=== PATIENT | female | born 1955 | race Caucasian/White ===

== ENCOUNTER 2019-01-09 17:50 | Inpatient (IN) ==
--- NOTE | 2019-01-09 17:54 | Emergency Department Note ---
Disposition Clinical Impression: Positive blood culture, Intermittent fever Colon cancer Qualifiers: Colon location: unspecified part of colon Qualified Code(s): C18.9 - Malignant neoplasm of colon, unspecified Disposition: Admitted As Inpatient Condition: Fair Weakness HPI - General Chief complaint: ED General Medical Stated complaint: Positive Blood Cultures Time Seen by Provider: 01/09/19 17:54 Source: patient, family Mode of arrival: private vehicle Limitations: no limitations Nursing Notes Reviewed: Yes Vital Signs Reviewed: Yes - History of Present Illness HPI Narrative: Patient presents with a history of colon cancer with distal obstruction. She had persistent vomiting for which she has had a PEG tube for continuous gastric aspiration. She is on TPN for all nutrition. States she still rarely passes small amount of stool and she has not had blood or mucus. She feels her urine to be normal. She denies cough or chest pain. She has a normal amount of dyspnea on exertion and states she feels weak. She has been having intermittent fevers to 101-102 degrees that of been coming and going for couple weeks. She has reports some nausea and vomited once yesterday evening. She denies any ill exposures. She has had a couple sets of blood cultures obtained with lab work and blood cultures yesterday. She states these were drawn from her porch by [employer] and sent to [facility]. She was called by Sarah Thompson that she had a positive blood culture, was potentially septic and would have to come to the emergency department. Pt Subjective Complaint: generalized weakness/fatigue Onset (ago): week(s) Duration: intermittent, gradually worsening Location: generalized Improves with: none Worsens with: exertion Context: recent illness Associated symptoms: Reports: fever/chills, nausea/vomiting, shortness of breath. Denies: chest pain, confusion, dark stools, diaphoresis, dysuria, easy bruising, headaches, myalgias, rash, syncope - Related Data Home Medications Medication Instructions Recorded Confirmed LORazepam [Ativan] 0.5 mg PO HS PRN 09/22/18 01/09/19 Oxycodone HCl [Oxaydo] 5 mg PO Q6H PRN 01/09/19 01/09/19 Promethazine [Phenergan] 25 mg PO Q6HR 01/09/19 01/09/19 Allergies Allergy/AdvReac Type Severity Reaction Status Date / Time Sulfa (Sulfonamide Allergy Fever Verified 01/09/19 18:28 Antibiotics) All systems ED: reviewed and negative except as stated. Past Medical History - Past Medical History Attestation: Yes The following information was validated with the patient. Source: patient, old records reviewed, obtained from family, nursing notes reviewed Medical history: Reports: cancer (colon), hypertension Surgical history: Reports: appendectomy, cancer surgery, colostomy, hysterectomy, other (PEG tube) Psychiatric history: Reports: no psych history PREDATORY HUNTER history: Reports: no PREDATORY HUNTER history - Social History Smoking Status: Never smoker Smokeless Tobacco Status: No Alcohol use: Reports: none Drug use: Reports: none Physical Exam - General Limitations: no limitations General appearance: alert, in no apparent distress, other (Patient appears somewhat pale and sallow) - Head Head exam: atraumatic, normocephalic, normal inspection - Eye Eye exam: Present: normal appearance, PERRL, EOMI. Absent: scleral icterus, conjunctival injection - ENT ENT exam: normal exam, normal oropharynx, mucous membranes moist - Neck Neck exam: Present: normal inspection, full ROM, trachea midline - Chest Chest inspection: Present: normal inspection, symmetric chest wall rise - Respiratory Respiratory exam: Present: normal lung sounds bilaterally. Absent: respiratory distress, wheezes, prolonged expiratory phase - Cardiovascular Cardiovascular exam: Present: regular rate, normal rhythm, tachycardia, normal heart sounds - Abdominal Exam Abdominal exam: Present: soft, Non-Tender. Absent: tenderness, distention, guarding, rebound, rigidity - Extremities Exam Extremities exam: Present: normal inspection, full ROM, normal capillary refill. Absent: tenderness, pedal edema - Expanded Lower Extremity Exam Neurovascular/Tendon exam: Present: normal capillary refill. Absent: motor deficit, sensory deficit, tendon deficit Gait: observed and normal - Back Exam Back exam: Present: normal inspection, full ROM. Absent: tenderness - Neurological Exam Neurological exam: Present: alert, oriented X3 - Psychiatric Psychiatric exam: Present: normal affect, normal mood - Skin Skin exam: Present: warm, dry, intact, pallor. Absent: rash, diaphoresis Course Course Narrative: 1821: I have contacted Dr. Riggs to clarify the record from the office. He states they have been in communication with the specialist from [facility] and they recommended oral doxycycline just in case the staph epidermidis was not a contaminant. This was called to [facility] pharmacy yesterday. Today her had called to say she had nausea with a doxycycline and questioned his medications could be given intravenously by her report. Given her elevated white count and intolerance of the oral medication and was recommended that she come to the emergency department because they "cannot manage as outpatient". In the record his been thought that her intermittent fevers and then more se condary to her cancer that infection. With the positive culture they have recommended a course of IV antibiotics to see if that helps. 1841: Care has been discussed with Dr. Quiros. He is agreeable to continue IV fluids and IV antibiotics over the night. He did wish to have the repeat cultures performed. He will be in contact with the primary care provider to coordinate ongoing care during daylight hours tomorrow. Vital Signs Temperature 98.7 F 01/09/19 17:50 Pulse Rate 111 01/09/19 17:50 Respiratory Rate 16 01/09/19 17:50 Blood Pressure 135/72 01/09/19 17:50 O2 Sat by Pulse Oximetry 100 01/09/19 17:50 Temperature 101.3 F H 01/10/19 06:46 Pulse Rate 129 01/10/19 06:46 Respiratory Rate 20 01/10/19 06:46 Blood Pressure 125/71 01/10/19 06:46 O2 Sat by Pulse Oximetry 95 01/10/19 06:46 Oxygen Delivery Oxygen Delivery Room Air Weakness - Differential Diagnosis Differential Diagnosis: Likely: anemia, sepsis/infection, dehydration, medicat ion effect, metabolic - Medical Records Medical records reviewed: Yes I reviewed the patient's medical records. Patient had a blood culture from January 02 that was positive for Staphylococcus epidermidis. This demonstrates sensitivity to doxycycline as well as vancomycin. Her blood cultures from yesterday are currently incubating and have not been positive. I called the lab to confirm this. CBC yesterday had white count of 22.1 and her hemoglobin is at 7.6 with platelets of 650. Chemistries were remarkable for be 132 with creatinine 0.83. LFTs had only slight elevation of alkaline phosphatase of 164. On January 04 she had similar lab work with white count of 21.3 and hemoglobin of 8. Her be on was 25 and a creatinine of 0.90 at that time. - Lab Data Lab results reviewed: Yes I reviewed the patient's lab results. Result diagrams: 01/09/19 18:13 01/09/19 18:13 Lab Results 01/09/19 01/09/19 01/09/19 Range/Units 18:13 18:13 18:13 WBC 22.4 H (4.3-11.1) K/mcL RBC 2.78 L (3.82-4.97) M/mcL Hgb 7.5 L (11.5-15.4) g/dL Hct 23.3 L (35.3-44.9) % MCV 83.8 (83.0-100.0) fL MCH 27.0 L (28.0-33.3) pg MCHC 32.2 (31.6-35.5) g/dL RDW 17.6 H (11.5-14.5) % Plt Count 680 H (140-400) K/mcL MPV 8.5 L (9.4-12.4) fL Immature Gran % 2.6 (0-4) % Seg Neutrophils % 75.7 % Lymphocytes % 11.7 % Monocytes % 8.8 % Eosinophils % 0.9 % Basophils % 0.3 % Neutrophils # 17.0 H (1.6-8.9) K/mcL Lymphocytes # 2.6 (0.6-4.6) K/mcL Monocytes # 2.0 H (0.0-1.3) K/mcL Eosinophils # 0.2 (0.0-0.6) K/mcL Basophils # 0.1 (0.0-0.2) K/mcL Sodium 136 (136-145) mEq/L Potassium 3.8 (3.5-5.1) mEq/L Chloride 101 (98-107) mEq/L Carbon Dioxide 25 (23-29) mEq/L BUN 31 H (8-23) mg/dL Creatinine 0.91 (0.60-1.20) mg/dL Est GFR ( Amer) > 60 (> 60) Est GFR (Non-Af Amer) > 60 (> 60) BUN/Creatinine Ratio 34 H (6-26) Glucose 102 (70-105) mg/dL Calculated Osmolality 289 (280-300) Lactic Acid 0.9 (0.5-2.2) mmol/L Calcium 8.6 (8.6-10.3) mg/dL Total Bilirubin 0.3 (0.3-1.0) mg/dL Direct Bilirubin 0.1 (0.0-0.2) mg/dL Indirect Bilirubin 0.2 (0.0-1.2) mg/dL AST 21 (13-39) Units/L ALT 25 (7-52) Units/L Alkaline Phosphatase 189 H (34-104) Units/L Serum Total Protein 7.1 (6.4-8.9) g/dL Albumin 2.9 L (3.5-5.7) g/dL Globulin 4.2 H (2.4-3.5) g/dL Albumin/Globulin Ratio 0.7 L (1.1-2.2)
[2019-01-09] MEDS ORDERED: Piperacillin/Tazobactam 3.375 GM in 0.9 % Sodium Chloride Mini Bag 100 ML IVPB ONE (17:56)
[2019-01-09] MEDS ORDERED: 0.9 % Sodium Chloride 1,000 ML IVC ONE (17:56)
[2019-01-09] MEDS ORDERED: 0.9 % Sodium Chloride 1,000 ML IVC SCH (18:00)
[2019-01-09 18:21] LABS: Basophils # 0.1 K/mcL (0.0-0.2); Basophils % 0.3 %; Eosinophils # 0.2 K/mcL (0.0-0.6); Eosinophils % 0.9 %; Hematocrit 23.3 % (35.3-44.9); Hemoglobin 7.5 g/dL (11.5-15.4); Immature Granulocytes % 2.6 % (0-4); Lymphocytes # 2.6 K/mcL (0.6-4.6); Lymphocytes % 11.7 %; Mean Corpuscular HGB Conc 32.2 g/dL (31.6-35.5); Mean Corpuscular Volume 83.8 fL (83.0-100.0); Mean Platelet Volume 8.5 fL (9.4-12.4); Monocytes % 8.8 %; Platelet Count 680 K/mcL (140-400); Red Blood Count 2.78 M/mcL (3.82-4.97); Red Cell Distribution Width 17.6 % (11.5-14.5); Segmented Neutrophils % 75.7 %
[2019-01-09 18:36] LABS: Alanine Aminotransferase 25 Units/L (7-52); Albumin 2.9 g/dL (3.5-5.7); Albumin/Globulin Ratio 0.7 (1.1-2.2); Alkaline Phosphatase 189 Units/L (34-104); Aspartate Amino Transferase 21 Units/L (13-39); BUN/Creatinine Ratio 34 (6-26); Bilirubin,Direct 0.1 mg/dL (0.0-0.2); Bilirubin,Indirect 0.2 mg/dL (0.0-1.2); Bilirubin,Total 0.3 mg/dL (0.3-1.0); Blood Urea Nitrogen 31 mg/dL (8-23); Calcium 8.6 mg/dL (8.6-10.3); Carbon Dioxide 25 mEq/L (23-29); Chloride 101 mEq/L (98-107); Globulin 4.2 g/dL (2.4-3.5); Glucose 102 mg/dL (70-105); Osmolality,Calculated 289 (280-300); Potassium 3.8 mEq/L (3.5-5.1); Sodium 136 mEq/L (136-145); Total Protein 7.1 g/dL (6.4-8.9); eGFR For Non-African Americans > 60 (> 60)
[2019-01-09] MEDS ORDERED: Ondansetron ODT 4 MG TAB.RAPDIS SL PRN (19:53)
[2019-01-09] MEDS ORDERED: *HR* LORazepam 1 MG TABLET PO PRN (19:53)
[2019-01-09] MEDS ORDERED: Naloxone 0.4 MG/ML INJ IVP PRN (19:53)
[2019-01-09] MEDS: *HR* OxyCODONE Immed Rel 5 MG TABLET PO PRN (21:54)
[2019-01-09] MEDS: *HR* LORazepam 2 MG/ML VIAL IVP PRN (21:55)
[2019-01-09] MEDS: *HR* Promethazine 25 MG/ML VIAL IVP SCH (21:55)
[2019-01-10] MEDS ORDERED: *HR* Promethazine 25 MG/ML VIAL IVP SCH
[2019-01-10] MEDS ORDERED: cefTRIAXone 2,000 MG in 0.9 % Sodium Chloride Mini Bag 100 ML IVPB ONE (00:33)
[2019-01-10] MEDS: Acetaminophen 325 MG TABLET PO PRN ×2 (00:53→23:04)
[2019-01-10] MEDS: Piperacillin/Tazobactam 3.375 GM in 0.9 % Sodium Chloride Mini Bag 100 ML IVPB SCH ×3 (03:05→23:01)
[2019-01-10] MEDS: 0.9 % Sodium Chloride 1,000 ML IVC SCH ×3 (04:47→15:58)
[2019-01-10] MEDS: *HR* Promethazine 25 MG/ML VIAL IVP SCH ×4 (04:47→22:00)
[2019-01-10] MEDS: *HR* OxyCODONE Immed Rel 5 MG TABLET PO PRN (10:34)
[2019-01-10] MEDS ORDERED: MORPHINE SUL Oral CONC 10 MG/0.5 ML ORAL.SYG SL PRN (10:57)
--- NOTE | 2019-01-10 15:04 | Internal Med History&Physical ---
Date of Encounter: 01/10/19 Time of Encounter: 12:30 Assessment and Plan (1) Anemia Current visit: Yes Status: Acute Anemia testing will be done Qualifiers: Anemia type: unspecified type Qualified Code(s): D64.9 - Anemia, unspecified (2) Azotemia Current visit: Yes Status: Acute IV fluids will be given and labs monitored. (3) Elevated WBC count Current visit: No Status: Acute Repeat blood cultures have been drawn. Continue Zosyn and vancomycin empiric ally. Qualifiers: Leukocytosis type: unspecified Qualified Code(s): D72.829 - Elevated white blood cell count, unspecified (4) Colon cancer Current visit: Yes Status: Acute As per oncologist. Qualifiers: Colon location: unspecified part of colon Qualified Code(s): C18.9 - Malignant neoplasm of colon, unspecified (5) Staphylococcus epidermidis bacteremia Current visit: Yes Status: Acute MRSE. Continue IV vancomycin. Add lactobacillus. Internal Medicine - H&P: HPI Chief complaint: Bacteremia Admitted From: Emergency Dept Plans for Post Hospital Care: Home History of present illness: Ms. Headley is a 63 year old female he was directed by her PCP office to come to emergency room for admission to receive IV antibiotics for treatment of methicillin resistant staph epidermidis found on blood cultures drawn 01/02/2019. The cultures were drawn through her port used for administration of TPN. She was evaluated in emergency room and was found to have persistent leukocytosis which has been present since 01/01/2019. She had worsened anemia with hemoglobin 7.5. There was slight azotemia present with BUN and creatinine 31 and 0.91 respectively. She was given IV Rocephin, Zosyn, and vancomycin and was admitted to [facility] floor with ongoing Zosyn and vancomycin. She reports she had been prescribed oral clindamycin by her PCP office immediately after culture results returned but was unable to tolerate. She was then changed to oral doxycycline but could not tolerate it either. She states she has has been having fevers and chills for several months but lab tests since November 2016 have shown no leukocytosis until the labs drawn 01/01/2019. The fevers and chills have been attributed to metastatic colon cancer which was diagnosed in 2009. She had a colostomy placed April 2014 following hemicolectomy. She was hospitalized 12/21/2018 to 12/30/2018 at [facility] for distal bowel obstruction. A PEG tube was placed for drainage to avoid vomiting from obstruction. She was started on TPN for nutritional needs. She has received multiple chemotherapy regimens and has had multiple metastatic lesions treated with various modalities. There is no other malignancy history. She has anemia and has received numerous blood transfusions. Past Med Surg Social Fam HX - Past Medical History Medical history: cancer (colon), hypertension Additional medical history: colon CA Psychiatric history: no psych history - Past Surgical History Surgical History: appendectomy, cancer surgery, colostomy, hysterectomy, other (PEG tube) Additional surgical history: x7 abd surgeries, colon surgery - Social History Smoking Status: Never smoker Smokeless Tobacco Status: No Alcohol use: none Drug use: none - Family History Mother Hx Family Cancer: Yes (Colon) Internal Medicine - H&P: Meds LORazepam [Ativan] 0.5 mg PO HS PRN 09/22/18 [History] Oxycodone HCl [Oxaydo] 5 mg PO Q6H PRN 01/09/19 [History] Promethazine [Phenergan] 25 mg PO Q6HR 01/09/19 [History] Allergy/AdvReac Type Severity Reaction Status Date / Time Sulfa (Sulfonamide Allergy Fever Verified 01/09/19 18:28 Antibiotics) All Systems PM: A 10-system review of systems was performed and is negative for pertinent findings except as documented above in the HPI. Review of systems: Gen.: Her weight has decreased from 73.935 kg December 2014 to weight of 65.771 kg on admission now Cardiovascular: She denies AR hypertension heart failure angina DVT or pulmonary embolus Respiratory: She is a lifelong nonsmoker and has no known chronic lung disease GI: She has colon cancer as per history of present illness. She denies disorders of her liver gallbladder or exocrine pancreas : She had partial cystectomy as part of treatment for colon cancer. She denies other kidney or bladder disorders. She has had hysterectomy and oophorectomy. Neurologic: She denies large distribution strokes or seizures. Endocrine: She denies diabetes thyroid disease or hyperlipidemia Hematology/oncology: As per history of present illness Psychiatric: She has anxiety but no significant depression or other mental health issues [place] skeletal: She denies arthritis gout or other bone joint or muscle disorders. - Constitutional Vitals: Temp Pulse Resp BP Pulse Ox 98.5 F 110 14 110/66 96 01/10/19 10:00 01/10/19 10:00 01/10/19 10:00 01/10/19 10:00 01/10/19 10:00 Exam: Gen.: She is well-developed lean female resting comfortably in bed who appears in no acute distress HEENT: Head is atraumatic and normocephalic. Eyes: EOMI. There is no scleral icterus. Mouth: Mucosa is moist. Neck: Supple and nontender. There is no thyromegaly or adenopathy noted. Heart: Regular with rate approximately 100/m. Lungs: No wheezes or crackles are heard. Abdomen: A G-tube is in place draining green bilious material into a collection bag. Colostomy is in the lower abdominal area just left of midline. There is a well-healed midline surgical scar. No masses or guarding are noted. Extremities: There is no cyanosis edema or clubbing noted. Dorsalis pedis and posterior tibial pulses are trace to 1+ palpable bilaterally. Neurologic: Mental status: She is talkative and a good historian. Cranial nerves: Smile is symmetric. Forehead wrinkles bilaterally. Tongue protrudes midline. EOMI. Motor: There is no pronator drift. Cerebellar: Finger to nose is intact bilaterally. Skin: Warm and dry Internal Med - H&P Results - Labs CBC & Chem 7: 01/09/19 18:13 01/09/19 18:13 Labs: Short CBC 01/09/19 Range/Units 18:13 WBC 22.4 H (4.3-11.1) K/mcL Hgb 7.5 L (11.5-15.4) g/dL Hct 23.3 L (35.3-44.9) % Plt Count 680 H (140-400) K/mcL Neutrophils # 17.0 H (1.6-8.9) K/mcL BMP 01/09/19 18:13 Sodium 136 Potassium 3.8 Chloride 101 Carbon Dioxide 25 BUN 31 H Creatinine 0.91 Glucose 102 Calcium 8.6 Liver Function 01/09/19 Range/Units 18:13 Total Bilirubin 0.3 (0.3-1.0) mg/dL Direct Bilirubin 0.1 (0.0-0.2) mg/dL AST 21 (13-39) Units/L ALT 25 (7-52) Units/L Alkaline Phosphatase 189 H (34-104) Units/L Albumin 2.9 L (3.5-5.7) g/dL
[2019-01-10] MEDS: MORPHINE SUL Oral CONC 10 MG/0.5 ML ORAL.SYG SL PRN (15:54)
[2019-01-10] MEDS: 0.45 % Sodium Chloride w/KCl 20 MEQ/1,000 ML MLS IVC SCH (15:56)
[2019-01-10] MEDS ORDERED: 0.9 % Sodium Chloride 1,000 ML ONE (18:48)
[2019-01-10] MEDS: Lactobacillus 1 EACH CAP.SPRINK PO SCH (19:11)
[2019-01-10 21:54] LABS: Folate 17.5 ng/mL (3.0-16.0)
[2019-01-10 21:55] LABS: Ferritin 321 ng/mL (10-120); Iron < 10 mcg/dL (50-170); Transferrin 137 mg/dL (203-362)
[2019-01-10] MEDS: *HR* LORazepam 2 MG/ML VIAL IVP PRN (22:00)
[2019-01-11] MEDS ORDERED: 0.9 % Sodium Chloride 250 ML ONE (01:18)
[2019-01-11] MEDS: *HR* Promethazine 25 MG/ML VIAL IVP SCH ×4 (05:04→22:09)
[2019-01-11] MEDS: Acetaminophen 325 MG TABLET PO PRN ×2 (05:18→15:22)
[2019-01-11 06:04] LABS: Basophils # 0.1 K/mcL (0.0-0.2); Basophils % 0.3 %; Eosinophils # 0.3 K/mcL (0.0-0.6); Eosinophils % 1.4 %; Hematocrit 28.1 % (35.3-44.9); Hemoglobin 9.1 g/dL (11.5-15.4); Immature Granulocytes % 1.7 % (0-4); Lymphocytes # 2.2 K/mcL (0.6-4.6); Lymphocytes % 10.2 %; Mean Corpuscular HGB Conc 32.4 g/dL (31.6-35.5); Mean Corpuscular Hemoglobin 27.4 pg (28.0-33.3); Mean Corpuscular Volume 84.6 fL (83.0-100.0); Mean Platelet Volume 8.5 fL (9.4-12.4); Monocytes % 9.4 %; Neutrophils # 16.5 K/mcL (1.6-8.9); Platelet Count 628 K/mcL (140-400); Red Blood Count 3.32 M/mcL (3.82-4.97); Red Cell Distribution Width 17.2 % (11.5-14.5)
[2019-01-11 06:27] LABS: BUN/Creatinine Ratio 26 (6-26); Blood Urea Nitrogen 22 mg/dL (8-23); Carbon Dioxide 23 mEq/L (23-29); Chloride 105 mEq/L (98-107); Glucose 79 mg/dL (70-105); Osmolality,Calculated 288 (280-300); Potassium 3.7 mEq/L (3.5-5.1); Sodium 138 mEq/L (136-145); eGFR For Non-African Americans > 60 (> 60)
[2019-01-11] MEDS: Piperacillin/Tazobactam 3.375 GM in 0.9 % Sodium Chloride Mini Bag 100 ML IVPB SCH (07:58)
[2019-01-11] MEDS: Lactobacillus 1 EACH CAP.SPRINK PO SCH ×2 (08:18→20:01)
--- NOTE | 2019-01-11 10:46 | Internal Med Progress Note ---
Date of Encounter: 01/11/19 Time of Encounter: 10:24 - Assessment and plan (1) Anemia Current Visit: Yes Status: Acute Assessment and plan: January 11. Hemoglobin has risen to 9.1 after 2 units packed red blood cells transfused. Anemia testing showed iron < 10, transferrin 137, ferritin 321, B12 391, and folate 17.5. She will receive an iron sucrose injection. Qualifiers: Anemia type: unspecified type Qualified Code(s): D64.9 - Anemia, unspecified (2) Azotemia Current Visit: Yes Status: Acute Assessment and plan: January 11. BUN and creatinine normalized at 22 and 0.86 respectively. Continue IV fluids. (3) Elevated WBC count Current Visit: No Status: Acute Assessment and plan: January 11. WBC minimally changed at 21.4. Borderline left shift on differential is present. Continue IV vancomycin. Discontinue Zosyn. Qualifiers: Leukocytosis type: unspecified Qualified Code(s): D72.829 - Elevated white blood cell count, unspecified (4) Colon cancer Current Visit: Yes Status: Acute Assessment and plan: January 11. As per oncologist Qualifiers: Colon location: unspecified part of colon Qualified Code(s): C18.9 - Malignant neoplasm of colon, unspecified (5) Staphylococcus epidermidis bacteremia Current Visit: Yes Status: Acute Assessment and plan: January 11. HUMAIRA. Continue IV vancomycin and lactobacillus. - Subjective Interval history: January 11. She has no new complaints and feels better. - Constitutional Vitals: Temp Pulse Resp BP Pulse Ox 99.7 F H 109 16 117/66 97 01/11/19 09:53 01/11/19 09:53 01/11/19 09:53 01/11/19 09:53 01/11/19 09:53 Exam: She is resting comfortably in bed and appears in no acute distress. Her affect is overall cheerful. I reviewed her medications and lab results. Internal Medicine: Result - Labs CBC & Chem 7: 01/11/19 04:40 01/11/19 04:40 Labs: Short CBC 01/11/19 Range/Units 04:40 WBC 21.4 H (4.3-11.1) K/mcL Hgb 9.1 L D (11.5-15.4) g/dL Hct 28.1 L (35.3-44.9) % Plt Count 628 H (140-400) K/mcL Neutrophils # 16.5 H (1.6-8.9) K/mcL BMP 01/11/19 04:40 Sodium 138 Potassium 3.7 Chloride 105 Carbon Dioxide 23 BUN 22 Creatinine 0.86 Glucose 79 Calcium 8.0 L Consult Discharge Plan - Plan Referrals: Sarah Thompson, MANAGER CODE [Primary Care Provider] - 1 week
[2019-01-11] MEDS ORDERED: Iron Sucrose Complex 400 MG in 0.9 % Sodium Chloride 250 ML IVPB ONE (10:51)
[2019-01-11] MEDS: MORPHINE SUL Oral CONC 10 MG/0.5 ML ORAL.SYG SL PRN ×2 (10:56→15:23)
[2019-01-11] MEDS: 0.45 % Sodium Chloride w/KCl 20 MEQ/1,000 ML MLS IVC SCH ×2 (13:44→15:02)
[2019-01-11] MEDS: *HR* LORazepam 2 MG/ML VIAL IVP PRN (20:01)
[2019-01-12] MEDS: Acetaminophen 325 MG TABLET PO PRN ×3 (02:19→16:46)
[2019-01-12] MEDS: *HR* Promethazine 25 MG/ML VIAL IVP SCH ×4 (04:25→21:17)
[2019-01-12 04:55] LABS: Basophils # 0.1 K/mcL (0.0-0.2); Basophils % 0.3 %; Eosinophils # 0.3 K/mcL (0.0-0.6); Eosinophils % 1.5 %; Hematocrit 27.3 % (35.3-44.9); Hemoglobin 8.9 g/dL (11.5-15.4); Immature Granulocytes % 1.8 % (0-4); Lymphocytes # 2.2 K/mcL (0.6-4.6); Lymphocytes % 10.8 %; Mean Corpuscular HGB Conc 32.6 g/dL (31.6-35.5); Mean Corpuscular Hemoglobin 27.6 pg (28.0-33.3); Mean Corpuscular Volume 84.8 fL (83.0-100.0); Mean Platelet Volume 8.5 fL (9.4-12.4); Monocytes # 1.9 K/mcL (0.0-1.3); Monocytes % 9.4 %; Neutrophils # 15.2 K/mcL (1.6-8.9); Platelet Count 596 K/mcL (140-400); Red Blood Count 3.22 M/mcL (3.82-4.97); Red Cell Distribution Width 17.2 % (11.5-14.5); Segmented Neutrophils % 76.2 %
[2019-01-12 05:19] LABS: BUN/Creatinine Ratio 32 (6-26); Blood Urea Nitrogen 25 mg/dL (8-23); Carbon Dioxide 22 mEq/L (23-29); Chloride 105 mEq/L (98-107); Glucose 81 mg/dL (70-105); Osmolality,Calculated 287 (280-300); Potassium 3.9 mEq/L (3.5-5.1); Sodium 137 mEq/L (136-145); eGFR For Non-African Americans > 60 (> 60)
[2019-01-12 07:11] LABS: Bilirubin,Urine Negative (Negative); Blood,Urine Trace-intact (Negative); Clarity,Urine Clear (Clear); Color,Urine Yellow (Yellow); Glucose,Urine (UA) Normal (Normal); Ketones,Urine Negative (Negative); Leukocyte Esterase,Urine Negative (Negative); Nitrite,Urine Negative (Negative); PH,Urine 6.5 pH Units (5.0-8.0); Protein,Urine Trace mg/dL (Neg-Trace); Urobilinogen,Urine Normal (Normal)
[2019-01-12] MEDS: 0.45 % Sodium Chloride w/KCl 20 MEQ/1,000 ML MLS IVC SCH ×2 (07:58→11:28)
[2019-01-12] MEDS: Lactobacillus 1 EACH CAP.SPRINK PO SCH ×2 (08:05→19:56)
[2019-01-12 10:35] LABS: RBC,Urine 0-3 per hpf (0-3); Renal Epithelial Cells,Urine Few per hpf (None-Few); Squamous Epithelial Cell,Urine None Seen per lpf (None-Few); WBC,Urine 0-3 per hpf (0-3)
--- NOTE | 2019-01-12 10:51 | Internal Med Progress Note ---
Date of Encounter: 01/12/19 Time of Encounter: 10:40 - Assessment and plan (1) Anemia Current Visit: Yes Status: Acute Assessment and plan: January 11. Hemoglobin has risen to 9.1 after 2 units packed red blood cells transfused. Anemia testing showed iron < 10, transferrin 137, ferritin 321, B12 391, and folate 17.5. She will receive an iron sucrose injection. January 12. Hemoglobin minimally changed at 8.9. Continue to monitor CBC periodically. Qualifiers: Anemia type: unspecified type Qualified Code(s): D64.9 - Anemia, unspecified (2) Azotemia Current Visit: Yes Status: Acute Assessment and plan: January 11. BUN and creatinine normalized at 22 and 0.86 respectively. Continue IV fluids. January 12. BUN and creatinine further improved to 25 and 0.78 respectively. Continue IV fluids but change to 12 hour span between TPN administrations. (3) Elevated WBC count Current Visit: No Status: Acute Assessment and plan: January 11. WBC minimally changed at 21.4. Borderline left shift on differential is present. Continue IV vancomycin. Discontinue Zosyn. January 12. WBC gradually decreasing. There is still borderline left shift seen. I explained to patient and her I was concerned there might be a source focus for the staph epidermidis such as valve vegetation since she has IV port in place. Her WBC is gradually decreasing but is still significantly elevated and she has significantly elevated ESR and CRP. I offered referral to another center for infectious disease and cardiology evaluation including possible [facility]. After discussion patient and stated they wish to stay at [facility] and continue empiric IV antibiotic treatment. She will need to be on IV vancomycin for at least 2 weeks with lab monitoring done. Blood cultures done January 08 and January 09 are pending. Qualifiers: Leukocytosis type: unspecified Qualified Code(s): D72.829 - Elevated white blood cell count, unspecified (4) Colon cancer Current Visit: Yes Status: Acute Assessment and plan: January 11. As per oncologist Qualifiers: Colon location: unspecified part of colon Qualified Code(s): C18.9 - Malignant neoplasm of colon, unspecified (5) Staphylococcus epidermidis bacteremia Current Visit: Yes Status: Acute Assessment and plan: January 11. MRSE. Continue IV vancomycin and lactobacillus. January 12. As above - Subjective Interval history: January 11. She has no new complaints and feels better. January 12. She has no new complaints. - Constitutional Vitals: Temp Pulse Resp BP Pulse Ox 99.1 F 107 18 121/68 97 01/12/19 07:55 01/12/19 07:55 01/12/19 07:55 01/12/19 07:55 01/12/19 07:55 Exam: She is resting comfortably in bed and appears in no acute distress. Her affect is bright and cheerful. I reviewed her medications, vitals, and lab results. Internal Medicine: Result - Labs CBC & Chem 7: 01/12/19 04:35 01/12/19 04:35 Labs: Short CBC 01/12/19 Range/Units 04:35 WBC 19.9 H (4.3-11.1) K/mcL Hgb 8.9 L (11.5-15.4) g/dL Hct 27.3 L (35.3-44.9) % Plt Count 596 H (140-400) K/mcL Neutrophils # 15.2 H (1.6-8.9) K/mcL BMP 01/12/19 04:35 Sodium 137 Potassium 3.9 Chloride 105 Carbon Dioxide 22 L BUN 25 H Creatinine 0.78 Glucose 81 Calcium 8.0 L Urine 01/11/19 Range/Units 05:13 Urine Color Yellow (Yellow) Urine Clarity Clear (Clear) Urine pH 6.5 (5.0-8.0) pH Units Ur Specific [place] 1.020 (1.010-1.025) Urine Protein Trace (Neg-Trace) mg/dL Urine Glucose (UA) Normal (Normal) mg/dL Consult Discharge Plan - Plan Referrals: Sarah Thompson, CDL TEAM TRUCK DRIVER [Primary Care Provider] - 1 week
[2019-01-12] MEDS: MORPHINE SUL Oral CONC 10 MG/0.5 ML ORAL.SYG SL PRN (13:29)
[2019-01-12 13:41] LABS: Magnesium 1.9 mg/dL (1.6-2.6); Phosphorous 3.4 mg/dL (2.7-4.5)
[2019-01-12] MEDS: *HR* FentaNYL PATCH 12 MCG PATCH TD SCH (16:49)
[2019-01-12] MEDS ORDERED: Patient Taking Own Medication 1 EACH IVP ONE (19:45)
[2019-01-12] MEDS: *HR* LORazepam 2 MG/ML VIAL IVP PRN (21:17)
[2019-01-13] MEDS: Acetaminophen 325 MG TABLET PO PRN ×3 (01:37→18:02)
[2019-01-13] MEDS: *HR* Promethazine 25 MG/ML VIAL IVP SCH ×4 (03:41→21:09)
[2019-01-13] MEDS: *HR* Enoxaparin 40 MG/0.4 ML SYRINGE SQ SCH (05:25)
[2019-01-13 06:47] LABS: Magnesium 1.9 mg/dL (1.6-2.6); Phosphorous 4.2 mg/dL (2.7-4.5)
[2019-01-13] MEDS: 0.45 % Sodium Chloride w/KCl 20 MEQ/1,000 ML MLS IVC SCH (08:40)
[2019-01-13] MEDS: Lactobacillus 1 EACH CAP.SPRINK PO SCH ×2 (08:41→21:08)
[2019-01-13] MEDS ORDERED: D10% in Water 500 ML IVC PRN (10:26)
--- NOTE | 2019-01-13 15:43 | Internal Med Progress Note ---
Date of Encounter: 01/13/19 Time of Encounter: 15:30 - Assessment and plan (1) Anemia Current Visit: Yes Status: Acute Assessment and plan: January 11. Hemoglobin has risen to 9.1 after 2 units packed red blood cells transfused. Anemia testing showed iron < 10, transferrin 137, ferritin 321, B12 391, and folate 17.5. She will receive an iron sucrose injection. January 12. Hemoglobin minimally changed at 8.9. Continue to monitor CBC periodically. January 13. Recheck labs in a.m. Qualifiers: Anemia type: unspecified type Qualified Code(s): D64.9 - Anemia, u nspecified (2) Azotemia Current Visit: Yes Status: Acute Assessment and plan: January 11. BUN and creatinine normalized at 22 and 0.86 respectively. Continue IV fluids. January 12. BUN and creatinine further improved to 25 and 0.78 respectively. Continue IV fluids but change to 12 hour span between TPN administrations. January 13. Recheck labs in a.m. (3) Elevated WBC count Current Visit: No Status: Acute Assessment and plan: January 11. WBC minimally changed at 21.4. Borderline left shift on differential is present. Continue IV vancomycin. Discontinue Zosyn. January 12. WBC gradually decreasing. There is still borderline left shift seen. I explained to patient and her I was concerned there might be a source focus for the staph epidermidis such as valve vegetation since she has IV port in place. Her WBC is gradually decreasing but is still significantly elevated and she has significantly elevated ESR and CRP. I offered referral to another center for infectious disease and cardiology evaluation including possible BIANKA. After discussion patient and stated they wish to stay at [facility] and continue empiric IV antibiotic treatment. She will need to be on IV vancomycin for at least 2 weeks with lab monitoring done. Blood cultures done January 08 and January 09 are pending. January 13. Recheck labs in a.m. Qualifiers: Leukocytosis type: unspecified Qualified Code(s): D72.829 - Elevated white blood cell count, unspecified (4) Colon cancer Current Visit: Yes Status: Acute Assessment and plan: January 11. As per oncologist Qualifiers: Colon location: unspecified part of colon Qualified Code(s): C18.9 - Malignant neoplasm of colon, unspecified (5) Staphylococcus epidermidis bacteremia Current Visit: Yes Status: Acute Assessment and plan: January 11. HUMAIRA. Continue IV vancomycin and lactobacillus. January 12. As above January 13. I explained again to patient and family that I was not certain that she had endocarditis since no BIANKA had been done. I told them staph epidermidis could be a contaminant or true pathogen from port infection. Blood cultures January 08 January 09 show no growth to date. They agreed is reasona ble to continue IV antibiotics at this time and continuously reassess. (6) On total parenteral nutrition (TPN) Current Visit: Yes Status: Acute Assessment and plan: January 13. After lengthy discussions with multiple parties it has been decided she will be given TPN from [facility] pharmacy 18 hours a day with IV fluids to run the remaining 6 hours. - Subjective Interval history: January 11. She has no new complaints and feels better. January 12. She has no new complaints. January 13. She has no new complaints and feels better. - Constitutional Vitals: Temp Pulse Resp BP Pulse Ox 98.8 F 101 18 113/61 96 01/13/19 11:58 01/13/19 11:58 01/13/19 11:58 01/13/19 11:58 01/13/19 11:58 Exam: She is resting comfortably in bed and appears in no acute distress. Her affect is bright and cheerful. I reviewed her medications and lab results. Internal Medicine: Result - Labs CBC & Chem 7: 01/12/19 04:35 01/12/19 04:35 Consult Discharge Plan - Plan Referrals: Sarah Thompson, [employer] [Primary Care Provider] - 1 week
[2019-01-13] MEDS ORDERED: 0.45 % Sodium Chloride w/KCl 20 MEQ/1,000 ML MLS IVC SCH (15:47)
[2019-01-13] MEDS: MORPHINE SUL Oral CONC 10 MG/0.5 ML ORAL.SYG SL PRN (16:06)
[2019-01-13] MEDS ORDERED: Clinimix E 5%-15% SOLUTION 2,000 ML with MVI, adult with vitamin K 10 ML, Trace Eleme... IVC SCH (17:00)
[2019-01-13] MEDS: *HR* LORazepam 2 MG/ML VIAL IVP PRN (21:09)
[2019-01-14] MEDS: *HR* Promethazine 25 MG/ML VIAL IVP SCH (02:55)
[2019-01-14] MEDS: Acetaminophen 325 MG TABLET PO PRN ×3 (02:55→16:36)
[2019-01-14] MEDS: *HR* Enoxaparin 40 MG/0.4 ML SYRINGE SQ SCH (06:06)
[2019-01-14 06:30] LABS: Basophils # 0.1 K/mcL (0.0-0.2); Basophils % 0.3 %; Eosinophils # 0.4 K/mcL (0.0-0.6); Eosinophils % 2.3 %; Hematocrit 26.2 % (35.3-44.9); Hemoglobin 8.4 g/dL (11.5-15.4); Immature Granulocytes % 1.7 % (0-4); Lymphocytes # 1.9 K/mcL (0.6-4.6); Lymphocytes % 10.8 %; Mean Corpuscular HGB Conc 32.1 g/dL (31.6-35.5); Mean Corpuscular Hemoglobin 27.5 pg (28.0-33.3); Mean Corpuscular Volume 85.9 fL (83.0-100.0); Mean Platelet Volume 8.4 fL (9.4-12.4); Monocytes # 1.4 K/mcL (0.0-1.3); Monocytes % 7.9 %; Neutrophils # 13.5 K/mcL (1.6-8.9); Platelet Count 559 K/mcL (140-400); Red Blood Count 3.05 M/mcL (3.82-4.97); Red Cell Distribution Width 16.9 % (11.5-14.5)
[2019-01-14 06:51] LABS: Alanine Aminotransferase 19 Units/L (7-52); Albumin 2.6 g/dL (3.5-5.7); Albumin/Globulin Ratio 0.7 (1.1-2.2); Alkaline Phosphatase 194 Units/L (34-104); Aspartate Amino Transferase 17 Units/L (13-39); BUN/Creatinine Ratio 28 (6-26); Bilirubin,Total 0.4 mg/dL (0.3-1.0); Blood Urea Nitrogen 22 mg/dL (8-23); Carbon Dioxide 24 mEq/L (23-29); Chloride 102 mEq/L (98-107); Globulin 3.7 g/dL (2.4-3.5); Glucose 160 mg/dL (70-105); Osmolality,Calculated 287 (280-300); Potassium 4.1 mEq/L (3.5-5.1); Sodium 135 mEq/L (136-145); Total Protein 6.3 g/dL (6.4-8.9); eGFR For Non-African Americans > 60 (> 60)
[2019-01-14] MEDS ORDERED: *HR* Promethazine 25 MG/ML VIAL IVP PRN (09:11)
[2019-01-14] MEDS: Lactobacillus 1 EACH CAP.SPRINK PO SCH ×2 (09:25→20:57)
--- NOTE | 2019-01-14 10:01 | Internal Med Progress Note ---
Date of Encounter: 01/14/19 Time of Encounter: 09:50 - Assessment and plan (1) Anemia Current Visit: Yes Status: Acute Assessment and plan: January 11. Hemoglobin has risen to 9.1 after 2 units packed red blood cells transfused. Anemia testing showed iron < 10, transferrin 137, ferritin 321, B12 391, and folate 17.5. She will receive an iron sucrose injection. January 12. Hemoglobin minimally changed at 8.9. Continue to monitor CBC periodically. January 13. Recheck labs in a.m. January 14. Hemoglobin decreased slightly to 8.4. Continue to monitor. Qualifiers: Anemia type: unspecified type Qualified Code(s): D64.9 - Anemia, unspecified (2) Azotemia Current Visit: Yes Status: Acute Assessment and plan: January 11. BUN and creatinine normalized at 22 and 0.86 respectively. Continue IV fluids. January 12. BUN and creatinine further improved to 25 and 0.78 respectively. Continue IV fluids but change to 12 hour span between TPN administrations. January 13. Recheck labs in a.m. January 14. BUN and creatinine stable at 22 and 0.78 respectively. (3) Elevated WBC count Current Visit: No Status: Acute Assessment and plan: January 11. WBC minimally changed at 21.4. Borderline left shift on differential is present. Continue IV vancomycin. Discontinue Zosyn. January 12. WBC gradually decreasing. There is still borderline left shift s een. I explained to patient and her I was concerned there might be a source focus for the staph epidermidis such as valve vegetation since she has IV port in place. Her WBC is gradually decreasing but is still significantly elevated and she has significantly elevated ESR and CRP. I offered referral to another center for infectious disease and cardiology evaluation including possible BIANKA. After discussion patient and stated they wish to stay at [facility] and continue empiric IV antibiotic treatment. She will need to be on IV vancomycin for at least 2 weeks with lab monitoring done. Blood cultures done January 08 and January 09 are pending. January 13. Recheck labs in a.m. January 14. WBC decreased to 17.5. Continue IV vancomycin. Qualifiers: Leukocytosis type: unspecified Qualified Code(s): D72.829 - Elevated white blood cell count, unspecified (4) Colon cancer Current Visit: Yes Status: Acute Assessment and plan: January 11. As per oncologist Qualifiers: Colon location: unspecified part of colon Qualified Code(s): C18.9 - Malignant neoplasm of colon, unspecified (5) Staphylococcus epidermidis bacteremia Current Visit: Yes Status: Acute Assessment and plan: January 11. HUMAIRA. Continue IV vancomycin and lactobacillus. January 12. As above January 13. I explained again to patient and family that I was not certain that she had endocarditis since no BIANKA had been done. I told them staph epidermidis could be a contaminant or true pathogen from port infection. Blood cultures January 08 January 09 show no growth to date. They agreed is reasonable to continue IV antibiotics at this time and continuously reassess. January 14. Blood cultures January 08 returned showing no growth. WBC has decreased again. Continue vancomycin. She inquired about being discharged and getting IV vancomycin as an outpatient either at home or series patient at the hospital. (6) On total parenteral nutrition (TPN) Current Visit: Yes Status: Acute Assessment and plan: January 13. After lengthy discussions with multiple parties it has been decided she will be given TPN from [facility] pharmacy 18 hours a day with IV fluids to run the remaining 6 hours. - Subjective Interval history: January 11. She has no new complaints and feels better. January 12. She has no new complaints. January 13. She has no new complaints and feels better. January 14. She has no new complaints. - Constitutional Vitals: Temp Pulse Resp BP Pulse Ox 99.1 F 103 18 129/77 96 01/14/19 09:16 01/14/19 09:16 01/14/19 09:16 01/14/19 09:16 01/14/19 09:16 Exam: She is resting comfortably in bed and appears in no acute distress. Her affect is bright and cheerful. I reviewed her medications and lab results. Internal Medicine: Result - Labs CBC & Chem 7: 01/14/19 06:20 01/14/19 06:20 Labs: Short CBC 01/14/19 Range/Units 06:20 WBC 17.5 H (4.3-11.1) K/mcL Hgb 8.4 L (11.5-15.4) g/dL Hct 26.2 L (35.3-44.9) % Plt Count 559 H (140-400) K/mcL Neutrophils # 13.5 H (1.6-8.9) K/mcL BMP 02/24/19 06:20 Sodium 135 L Potassium 4.1 Chloride 102 Carbon Dioxide 24 BUN 22 Creatinine 0.78 Glucose 160 H Calcium 8.0 L Liver Function 01/14/19 Range/Units 06:20 Total Bilirubin 0.4 (0.3-1.0) mg/dL AST 17 (13-39) Units/L ALT 19 (7-52) Units/L Alkaline Phosphatase 194 H (34-104) Units/L Albumin 2.6 L (3.5-5.7) g/dL Consult Discharge Plan - Plan Referrals: Sarah Thompson, [employer] [Primary Care Provider] - 1 week
[2019-01-14] MEDS: 0.45 % Sodium Chloride w/KCl 20 MEQ/1,000 ML MLS IVC SCH (11:14)
[2019-01-14] MEDS: MORPHINE SUL Oral CONC 10 MG/0.5 ML ORAL.SYG SL PRN (14:41)
[2019-01-14] MEDS ORDERED: Clinimix E 5%-15% SOLUTION 2,000 ML with MVI, adult with vitamin K 10 ML, Trace Eleme... IVC SCH ×2 (17:00)
[2019-01-14] MEDS: *HR* Promethazine 25 MG/ML VIAL IVP PRN (18:47)
[2019-01-14] MEDS: *HR* LORazepam 2 MG/ML VIAL IVP PRN (20:57)
[2019-01-15] MEDS: Acetaminophen 325 MG TABLET PO PRN ×3 (01:31→18:55)
[2019-01-15] MEDS: *HR* Enoxaparin 40 MG/0.4 ML SYRINGE SQ SCH (07:03)
[2019-01-15] MEDS: Lactobacillus 1 EACH CAP.SPRINK PO SCH ×2 (09:18→21:13)
[2019-01-15 10:13] LABS: BUN/Creatinine Ratio 30 (6-26); Blood Urea Nitrogen 22 mg/dL (8-23); Calcium 8.4 mg/dL (8.6-10.3); Carbon Dioxide 27 mEq/L (23-29); Chloride 99 mEq/L (98-107); Glucose 97 mg/dL (70-105); Osmolality,Calculated 281 (280-300); Potassium 4.4 mEq/L (3.5-5.1); Sodium 134 mEq/L (136-145); eGFR For Non-African Americans > 60 (> 60)
[2019-01-15] MEDS: 0.45 % Sodium Chloride w/KCl 20 MEQ/1,000 ML MLS IVC SCH (12:21)
[2019-01-15] MEDS: MORPHINE SUL Oral CONC 10 MG/0.5 ML ORAL.SYG SL PRN ×2 (13:27→18:56)
--- NOTE | 2019-01-15 15:29 | Internal Med Progress Note ---
Date of Encounter: 01/15/19 Time of Encounter: 15:15 - Assessment and plan (1) Anemia Current Visit: Yes Status: Acute Assessment and plan: January 11. Hemoglobin has risen to 9.1 after 2 units packed red blood cells transfused. Anemia testing showed iron < 10, transferrin 137, ferritin 321, B12 391, and folate 17.5. She will receive an iron sucrose injection. January 12. Hemoglobin minimally changed at 8.9. Continue to monitor CBC periodically. January 13. Recheck labs in a.m. January 14. Hemoglobin decreased slightly to 8.4. Continue to monitor. Qualifiers: Anemia type: unspecified type Qualified Code(s): D64.9 - Anemia, unspecified (2) Azotemia Current Visit: Yes Status: Acute Assessment and plan: January 11. BUN and creatinine normalized at 22 and 0.86 respectively. Continue IV fluids. January 12. BUN and creatinine further improved to 25 and 0.78 respectively. Continue IV fluids but change to 12 hour span between TPN administrations. January 13. Recheck labs in a.m. January 14. BUN and creatinine stable at 22 and 0.78 respectively. (3) Elevated WBC count Current Visit: No Status: Acute Assessment and plan: January 11. WBC minimally changed at 21.4. Borderline left shift on differential is present. Continue IV vancomycin. Discontinue Zosyn. January 12. WBC gradually decreasing. There is still borderline left shift s een. I explained to patient and her I was concerned there might be a source focus for the staph epidermidis such as valve vegetation since she has IV port in place. Her WBC is gradually decreasing but is still significantly elevated and she has significantly elevated ESR and CRP. I offered referral to another center for infectious disease and cardiology evaluation including possible BIANKA. After discussion patient and stated they wish to stay at [facility] and continue empiric IV antibiotic treatment. She will need to be on IV vancomycin for at least 2 weeks with lab monitoring done. Blood cultures done January 08 and January 09 are pending. January 13. Recheck labs in a.m. January 14. WBC decreased to 17.5. Continue IV vancomycin. January 15. Recheck labs in a.m. Qualifiers: Leukocytosis type: unspecified Qualified Code(s): D72.829 - Elevated white blood cell count, unspecified (4) Colon cancer Current Visit: Yes Status: Acute Assessment and plan: January 11. As per oncologist Qualifiers: Colon location: unspecified part of colon Qualified Code(s): C18.9 - Malignant neoplasm of colon, unspecified (5) Staphylococcus epidermidis bacteremia Current Visit: Yes Status: Acute Assessment and plan: January 11. HUMAIRA. Continue IV vancomycin and lactobacillus. January 12. As above January 13. I explained again to patient and family that I was not certain that she had endocarditis since no BIANKA had been done. I told them staph epidermidis could be a contaminant or true pathogen from port infection. Blood cultures January 08 January 09 show no growth to date. They agreed is reasonable to continue IV antibiotics at this time and continuously reassess. January 14. Blood cultures January 08 returned showing no growth. WBC has decreased again. Continue vancomycin. She inquired about being discharged and getting IV vancomycin as an outpatient either at home or series patient at the hospital. January 15. Blood cultures drawn January 09 have returned showing no growth. Continue IV vancomycin for minimum of 2 weeks. She can have evaluation by [facility] staff or local ID to determine if additional IV antibiotics a fter 2 weeks is needed. (6) On total parenteral nutrition (TPN) Current Visit: Yes Status: Acute Assessment and plan: January 13. After lengthy discussions with multiple parties it has been decided she will be given TPN from [facility] pharmacy 18 hours a day with IV fluids to run the remaining 6 hours. - Subjective Interval history: January 11. She has no new complaints and feels better. January 12. She has no new complaints. January 13. She has no new complaints and feels better. January 14. She has no new complaints. January 15. She has no new complaints. - Constitutional Vitals: Temp Pulse Resp BP Pulse Ox 98.3 F 96 14 122/79 96 01/15/19 11:54 01/15/19 11:54 01/15/19 11:54 01/15/19 11:54 01/15/19 11:54 Exam: She is resting comfortably in bed and appears in no acute distress. Her affect is bright and cheerful. I reviewed her medications and lab results. I talked at length with professor of social work regarding her care plan. Internal Medicine: Result - Labs CBC & Chem 7: 01/14/19 06:20 01/15/19 09:45 Labs: BMP 01/15/19 09:45 Sodium 134 L Potassium 4.4 Chloride 99 Carbon Dioxide 27 BUN 22 Creatinine 0.74 Glucose 97 Calcium 8.4 L Consult Discharge Plan - Plan Referrals: Sarah Thompson, LIZA [Primary Care Provider] - 1 week
[2019-01-15] MEDS: *HR* FentaNYL PATCH 12 MCG PATCH TD SCH (16:55)
[2019-01-15] MEDS ORDERED: Clinimix E 5%-15% SOLUTION 2,000 ML with MVI, adult with vitamin K 10 ML, Trace Eleme... IVC SCH (17:00)
[2019-01-15] MEDS: *HR* LORazepam 2 MG/ML VIAL IVP PRN (21:13)
[2019-01-15] MEDS: *HR* Promethazine 25 MG/ML VIAL IVP PRN (21:13)
[2019-01-16 05:52] LABS: BUN/Creatinine Ratio 31 (6-26); Blood Urea Nitrogen 22 mg/dL (8-23); Calcium 7.9 mg/dL (8.6-10.3); Carbon Dioxide 27 mEq/L (23-29); Chloride 102 mEq/L (98-107); Glucose 122 mg/dL (70-105); Osmolality,Calculated 287 (280-300); Phosphorous 4.4 mg/dL (2.7-4.5); Potassium 3.9 mEq/L (3.5-5.1); Sodium 136 mEq/L (136-145); eGFR For Non-African Americans > 60 (> 60)
[2019-01-16 06:13] VITALS: BP 107/68
[2019-01-16] MEDS: *HR* Enoxaparin 40 MG/0.4 ML SYRINGE SQ SCH (06:13)
[2019-01-16] MEDS: Lactobacillus 1 EACH CAP.SPRINK PO SCH (10:29)
--- NOTE | 2019-01-16 12:49 | Discharge Summary ---
Date of Encounter: 01/16/19 Time of Encounter: 12:35 - Discharge Diagnosis (1) Staphylococcus epidermidis bacteremia Priority: Primary Status: Acute (2) Elevated WBC count Priority: Secondary Status: Acute Qualifiers: Leukocytosis type: unspecified Qualified Code(s): D72.829 - Elevated white blood cell count, unspecified (3) Anemia Priority: Secondary Status: Acute Qualifiers: Anemia type: unspecified type Qualified Code(s): D64.9 - Anemia, unspecified (4) Azotemia Priority: Secondary Status: Resolved (5) Colon cancer Priority: Secondary Status: Chronic Qualifiers: Colon location: unspecified part of colon Qualified Code(s): C18.9 - Malignant neoplasm of colon, unspecified (6) On total parenteral nutrition (TPN) Priority: Secondary Status: Acute Hospital course: Ms. Headley is a 63 year old female who was directed by her PCP office to come to emergency room for admission to receive IV antibiotics for treatment of methicillin resistant staph epidermidis found on blood cultures drawn 01/02/2019. The cultures were drawn through her port used for administration of TPN. She was evaluated in emergency room and was found to have persistent leukocytosis which has been present since 01/01/2019. She had worsened anemia with hemoglobin 7.5. There was slight azotemia present with BUN and creatinine 31 and 0.91 respectively. She was given IV Rocephin, Zosyn, and vancomycin and was admitted to [facility] floor with ongoing Zosyn and vancomycin. Initial orders were written by the emergency room physician. I saw her on January 10 and performed the history and physical. She was transfused 2 units packed red blood cells. Her hemoglobin misti to 9.1 the following day. It had decreased to 8.4 by January 14. Her PCP can monitor labs. She was maintained on TPN. Initially she used the TPN prescribed by [facility] but later transition to TPN mixed by [facility] pharmacy. She will continue TPN at discharge on her previous home schedule. She had inadequate pain control on admission. Duragesic patch was not tolerated well. She was started on Roxanol with improvement. She was started on IV vancomycin. Leukocytosis decreased to 17.5 K on January 14. She will continue with IV vancomycin for a minimum of 2 weeks. Her PCP can refer her to infectious disease at [facility] or [facility] to determine if additional IV vancomycin is needed. She will have home health services administer daily vancomycin. She will follow with her PCP Sarah Thompson CNP within 1 week. - Time Spent with Patient Total time spent providing and/or coordinating discharge services: - Discharge Medications Prescriptions: New MORPHINE SUL Oral CONC [Roxanol Oral Conc] 10 mg SL Q2H PRN 7 Days #120 oral.syg PRN Reason: Pain Vancomycin [Vancocin] 1,000 mg IVPB Q24H 10 Days #10 vial Continue LORazepam [Ativan] 0.5 mg PO HS PRN PRN Reason: Anxiety Promethazine [Phenergan] 25 mg PO Q6HR Oxycodone HCl [Oxaydo] 5 mg PO Q6H PRN PRN Reason: Pain Home Medications: LORazepam [Ativan] 0.5 mg PO HS PRN 09/22/18 [History] Oxycodone HCl [Oxaydo] 5 mg PO Q6H PRN 01/09/19 [History] Promethazine [Phenergan] 25 mg PO Q6HR 01/09/19 [History] MORPHINE SUL Oral CONC [Roxanol Oral Conc] 10 mg SL Q2H PRN 7 Days #120 oral.syg 01/16/19 [Rx] Vancomycin [Vancocin] 1,000 mg IVPB Q24H 10 Days #10 vial 01/16/19 [Rx] Allergies/Adverse Reactions: Allergy/AdvReac Type Severity Reaction Status Date / Time Sulfa (Sulfonamide Allergy Fever Verified 01/09/19 18:28 Antibiotics) Date of admission: 01/12/19 10:47 Primary care physician: Sarah Thompson Consults: 01/12/19 11:49 dietary consult [Consult to Nutrition] [CONS] Routine Comment: Consulting Provider: NUTRITION Reason for Dietary Consult: TPN Start and Manage - Constitutional Vitals: Temp Pulse Resp BP Pulse Ox 99.9 F H 107 15 107/68 95 01/16/19 04:00 01/16/19 04:00 01/16/19 04:00 01/16/19 04:00 01/16/19 04:00 - Patient Status Disposition: Home Health Service Condition: Fair - Discharge Instructions Follow Up With: Sarah Thompson CNP [Primary Care Provider] - 1 week - Diet and Activity Activity: resume usual activities as tolerated Diet: advance to your usual diet
--- NOTE | 2019-01-16 12:56 | Physician Discharge Referral ---
Home Health/Hosp Referral Info Transfer to: Home Health Attending Provider: Ishaan Provider in Charge Post Discharge: PCP Kristyn) - Diagnosis (1) Staphylococcus epidermidis bacteremia Priority: Primary Status: Acute (2) Elevated WBC count Priority: Secondary Status: Acute (3) Anemia Priority: Secondary Status: Acute (4) Azotemia Priority: Secondary Status: Resolved (5) Colon cancer Priority: Secondary Status: Chronic (6) On total parenteral nutrition (TPN) Priority: Secondary Status: Acute - Respiratory Orders Smoking Cessation: Smoking cessation has been advised. For more information, call the [place] Quit Line at 4-182-VXWU-NOW. - Activity Activity Orders: Ambulate - Services Needed Following services are medically necessary services: Nursing, Home Health Aide, Physical Therapy, Occupational Therapy Other Treatments: Administer IV vancomycin daily until prescribed course completed. Monitor TPN usage. - Transfer Medications Prescriptions: MORPHINE SUL Oral CONC [Roxanol Oral Conc] 10 mg SL Q2H PRN 7 Days #120 oral.syg PRN Reason: Pain Vancomycin [Vancocin] 1,000 mg IVPB Q24H 10 Days #10 vial Home Medications: LORazepam [Ativan] 0.5 mg PO HS PRN 09/22/18 [History] Oxycodone HCl [Oxaydo] 5 mg PO Q6H PRN 01/09/19 [History] Promethazine [Phenergan] 25 mg PO Q6HR 01/09/19 [History] MORPHINE SUL Oral CONC [Roxanol Oral Conc] 10 mg SL Q2H PRN 7 Days #120 oral.syg 01/16/19 [Rx] Vancomycin [Vancocin] 1,000 mg IVPB Q24H 10 Days #10 vial 01/16/19 [Rx] Allergies/Adverse Reactions: Allergy/AdvReac Type Severity Reaction Status Date / Time Sulfa (Sulfonamide Allergy Fever Verified 01/09/19 18:28 Antibiotics) Certification: Further, I certify that my clinical findings support that this patient is homebound (i.e. absences from home require considerable and taxing effort and are for medical reasons or [facility] or infrequently or short duration when for other reasons) because: Homebound Reason: Leaving home requires considerable and taxing effort due to condition (IV antibiotics and TPN usage.) Attestation: My signature below is to certify that this patient is under my care and that I, or nurse practitioner, or a physician's clinical assistant working with me, has a [id number] encounter with this patient.
== END 2019-01-16 13:31 | disposition home health service (06) | DRG 872 ==
LOC: INPPIK 17:50 → EMEROOPIK 17:50 → INPPIK 20:20
PROVIDERS: ADMIT Internal Medicine; ATTEND Internal Medicine

== ENCOUNTER 2019-02-04 11:46 | Inpatient (IN) ==
--- NOTE | 2019-02-04 12:03 | Emergency Department Note ---
Disposition Clinical Impression: Sepsis, Positive blood culture, Intermittent fever, UTI (urinary tract infection) Disposition: Admitted As Inpatient Condition: Fair Time of Disposition: 14:49 General Adult HPI - General Chief complaint: ED General Medical Stated complaint: Blood infection Time Seen by Provider: 02/04/19 12:02 Source: patient Mode of arrival: ambulatory Limitations: no limitations Nursing Notes Reviewed: Yes Vital Signs Reviewed: Yes - History of Present Illness HPI Narrative: 63-year-old female presents today stating that she had positive blood cultures done at [facility]. Dr. Quiros and her [facility] doctor wanted her to be admitted for IV antibiotics. Patient states she does not feel any different than normal over the last time that she was here. Pain Scale: 7 - Related Data Home Medications Medication Instructions Recorded Confirmed LORazepam [Ativan] 0.5 mg PO HS PRN 09/22/18 02/04/19 Oxycodone HCl [Oxaydo] 5 mg PO Q6H PRN 01/09/19 02/04/19 Promethazine [Phenergan] 25 mg PO Q6HR 01/09/19 02/04/19 Allergies Allergy/AdvReac Type Severity Reaction Status Date / Time Sulfa (Sulfonamide Allergy Fever Verified 01/09/19 18:28 Antibiotics) Review of Systems: All other systems are negative except as noted/marked Chart generated with voice recognition software Nursing notes reviewed Old records reviewed Past Medical History - Past Medical History Attestation: Yes The following information was validated with the patient. Source: patient, old records reviewed, nursing notes reviewed Medical history: Reports: cancer, hypertension Surgical history: Reports: appendectomy, cancer surgery, colostomy, hysterectomy, other (PEG tube) Psychiatric history: Reports: no psych history NEON SIGN ERECTOR history: Reports: no NEON SIGN ERECTOR history - Social History Smoking Status: Never smoker Smokeless Tobacco Status: No Alcohol use: Reports: none Drug use: Reports: none Physical Exam - General Limitations: no limitations General appearance: alert - Head Head exam: atraumatic, normocephalic, normal inspection Course Vital Signs Temperature 98.1 F 02/04/19 11:50 Pulse Rate 132 02/04/19 11:50 Respiratory Rate 17 02/04/19 11:50 Blood Pressure 114/65 02/04/19 11:50 O2 Sat by Pulse Oximetry 98 02/04/19 11:50 Temperature 98.1 F 02/04/19 11:50 Pulse Rate 98 02/04/19 15:44 Respiratory Rate 15 02/04/19 15:44 Blood Pressure 118/68 02/04/19 15:44 O2 Sat by Pulse Oximetry 98 02/04/19 15:44 Oxygen Delivery Oxygen Delivery Room Air Medical Decision Making - MDM Narrative Medical decision making narrative: 63-year-old female presents today with fevers chills that started while she was in the department, and positive blood cultures drawn a few days ago. She has no elevated white count. We did a sepsis workup on her. I initially spoke with Dr. Quiros because he recommended that she come in for evaluation and treatment. He did not want to keep her here he would prefer if she went back to [place]. Patient states that she will not under any circumstances be transferred back to [place] today. Patient asked that we [phone] and speak with the physician that she is been speaking with all weekend about her blood cultures. We called this number, however he was very rude and told us not to call that number again. I spoke with Dr. Quiros as patient's lab work was coming back. She has a positive urinary tract infection and she has positive blood cultures from a couple days ago. We started on Zosyn and Vanco here. I think that the gram- negative rods are probably from the urine. I encouraged patient to go back to [place] however she is adamant she will not do that. Dr. Quiros was agreeable to accepting the patient that we did do a CAT scan of her chest abdomen pelvis to make sure there is nothing hiding in that it could also be causing some of her symptoms. These CAT scans showed worsening metastasis but no source of infection. I did review the images with the family and update them to her staying here getting IV fluids antibiotics here for worsening metastases on the images and so they have 90 of what to expect while she is here. Patient was comfortable at this time and had no other questions - Medical Records Medical records reviewed: Yes I reviewed the patient's medical records. - Lab Data Lab results reviewed: Yes I reviewed the patient's lab results. Result diagrams: 02/04/19 12:23 02/04/19 12:23 Lab Results 02/04/19 02/04/19 02/04/19 Range/Units 12:23 12:23 12:23 WBC 22.1 H (4.3-11.1) K/mcL RBC 2.86 L (3.82-4.97) M/mcL Hgb 7.9 L (11.5-15.4) g/dL Hct 25.0 L (35.3-44.9) % MCV 87.4 (83.0-100.0) fL MCH 27.6 L (28.0-33.3) pg MCHC 31.6 (31.6-35.5) g/dL RDW 16.4 H (11.5-14.5) % Plt Count 636 H (140-400) K/mcL MPV 8.7 L (9.4-12.4) fL Immature Gran % 1.5 (0-4) % Seg Neutrophils % 79.2 % Lymphocytes % 9.2 % Monocytes % 8.8 % Eosinophils % 0.9 % Basophils % 0.4 % Neutrophils # 17.5 H (1.6-8.9) K/mcL Lymphocytes # 2.0 (0.6-4.6) K/mcL Monocytes # 1.9 H (0.0-1.3) K/mcL Eosinophils # 0.2 (0.0-0.6) K/mcL Basophils # 0.1 (0.0-0.2) K/mcL PT 13.9 H (9.4-12.1) Seconds INR 1.2 APTT 31.6 (26.0-36.0) Seconds Sodium 135 L (136-145) mEq/L Potassium 4.0 (3.5-5.1) mEq/L Chloride 99 (98-107) mEq/L Carbon Dioxide 23 (23-29) mEq/L BUN 32 H (8-23) mg/dL Creatinine 0.82 (0.60-1.20) mg/dL Est GFR ( Amer) > 60 (> 60) Est GFR (Non-Af Amer) > 60 (> 60) BUN/Creatinine Ratio 39 H (6-26) Glucose 146 H (70-105) mg/dL Calculated Osmolality 290 (280-300) Lactic Acid (0.5-2.2) mmol/L Calcium 8.6 (8.6-10.3) mg/dL Phosphorus 4.5 (2.7-4.5) mg/dL Magnesium 2.0 (1.6-2.6) mg/dL Total Bilirubin 0.4 (0.3-1.0) mg/dL Direct Bilirubin 0.2 (0.0-0.2) mg/dL Indirect Bilirubin 0.2 (0.0-1.2) mg/dL AST 19 (13-39) Units/L ALT 15 (7-52) Units/L Alkaline Phosphatase 173 H (34-104) Units/L Troponin I < 0.03 (< 0.04) ng/mL Serum Total Protein 7.2 (6.4-8.9) g/dL Albumin 3.1 L (3.5-5.7) g/dL Globulin 4.1 H (2.4-3.5) g/dL Albumin/Globulin Ratio 0.8 L (1.1-2.2) Lipase 14 (11-82) Units/L Urine Color (Yellow) Urine Clarity (Clear) Urine pH (5.0-8.0) pH Units Ur Specific [place] (1.010-1.025) Urine Protein (Neg-Trace) mg/dL Urine Glucose (UA) (Normal) mg/dL Urine Ketones (Negative) mg/dL Urine Blood (Negative) Urine Nitrite (Negative) Urine Bilirubin (Negative) Urine Urobilinogen (Normal) mg/dL Ur Leukocyte Esterase (Negative) Urine Microscopic RBC (0-3) per hpf Urine Microscopic WBC (0-3) per hpf Ur Squamous Epith Cells (None-Few) per lpf Urine Bacteria (None-Few) per hpf Hyaline Casts (None-Few) per lpf Granular Casts (None Seen) per lpf Urine Mucus (Few) Ur Culture Indicated? (NO) 02/04/19 02/04/19 Range/Units 12:23 12:30 WBC (4.3-11.1) K/mcL RBC (3.82-4.97) M/mcL Hgb (11.5-15.4) g/dL Hct (35.3-44.9) % MCV (83.0-100.0) fL MCH (28.0-33.3) pg MCHC (31.6-35.5) g/dL RDW (11.5-14.5) % Plt Count (140-400) K/mcL MPV (9.4-12.4) fL Immature Gran % (0-4) % Seg Neutrophils % % Lymphocytes % % Monocytes % % Eosinophils % % Basophils % % Neutrophils # (1.6-8.9) K/mcL Lymphocytes # (0.6-4.6) K/mcL Monocytes # (0.0-1.3) K/mcL Eosinophils # (0.0-0.6) K/mcL Basophils # (0.0-0.2) K/mcL PT (9.4-12.1) Seconds INR APTT (26.0-36.0) Seconds Sodium (136-145) mEq/L Potassium (3.5-5.1) mEq/L Chloride (98-107) mEq/L Carbon Dioxide (23-29) mEq/L BUN (8-23) mg/dL Creatinine (0.60-1.20) mg/dL Est GFR ( Amer) (> 60) Est GFR (Non-Af Amer) (> 60) BUN/Creatinine Ratio (6-26) Glucose (70-105) mg/dL Calculated Osmolality (280-300) Lactic Acid 1.8 (0.5-2.2) mmol/L Calcium (8.6-10.3) mg/dL Phosphorus (2.7-4.5) mg/dL Magnesium (1.6-2.6) mg/dL Total Bilirubin (0.3-1.0) mg/dL Direct Bilirubin (0.0-0.2) mg/dL Indirect Bilirubin (0.0-1.2) mg/dL AST (13-39) Units/L ALT (7-52) Units/L Alkaline Phosphatase (34-104) Units/L Troponin I (< 0.04) ng/mL Serum Total Protein (6.4-8.9) g/dL Albumin (3.5-5.7) g/dL Globulin (2.4-3.5) g/dL Albumin/Globulin Ratio (1.1-2.2) Lipase (11-82) Units/L Urine Color Yellow (Yellow) Urine Clarity Slightly Cloudy A (Clear) Urine pH 7.0 (5.0-8.0) pH Units Ur Specific [place] 1.015 (1.010-1.025) Urine Protein 30 H (Neg-Trace) mg/dL Urine Glucose (UA) Normal (Normal) mg/dL Urine Ketones Negative (Negative) mg/dL Urine Blood Large H (Negative) Urine Nitrite Negative (Negative) Urine Bilirubin Negative (Negative) Urine Urobilinogen Normal (Normal) mg/dL Ur Leukocyte Esterase Small H (Negative) Urine Microscopic RBC TNTC H (0-3) per hpf Urine Microscopic WBC 5-15 H (0-3) per hpf Ur Squamous Epith Cells Few (None-Few) per lpf Urine Bacteria Moderate H (None-Few) per hpf Hyaline Casts Few (None-Few) per lpf Granular Casts Few H (None Seen) per lpf Urine Mucus Few (Few) Ur Culture Indicated? YES A (NO) - Radiology Data Radiology results reviewed: Yes I reviewed the patient's radiology results. EXAMINATION: CT OF THE CHEST WITH CONTRAST; CT OF THE ABDOMEN AND PELVIS WITH CONTRAST 02/04/2019 3:11 pm; 02/04/2019 3:16 pm TECHNIQUE: CT of the chest was performed with the administration of intravenous contrast. Multiplanar reformatted images are provided for review. Dose modulation, iterative reconstruction, and/or weight based adjustment of the mA/kV was utilized to reduce the radiation dose to as low as reasonably achievable.; CT of the abdomen and pelvis was performed with the administration of intravenous contrast. Multiplanar reformatted images are provided for review. Dose modulation, iterative reconstruction, and/or weight based adjustment of the mA/kV was utilized to reduce the radiation dose to as low as reasonably achievable. COMPARISON: Chest CT 09/22/2018, abdominal CT 2013 HISTORY: ORDERING SYSTEM PROVIDED HISTORY: sepsis; ORDERING SYSTEM PROVIDED HISTORY: L abd pain FINDINGS: Chest: Mediastinum: Thyroid gland appears normal. Scattered small mediastinal nodes are noted. Trace pericardial fluid is seen. Small hiatal hernia seen. There is nonspecific thickening at the GE junction. Tip of MediPort seen in distal SVC. Lungs/pleura: Scattered nodules are seen in the left upper lobe posteriorly, anteriorly, and inferiorly. There is a cluster of calcified and noncalcified nodules in the left lower lobe. Smaller punctate nodules are seen peripherally in the left lower lobe.. There are a few new small nodules on the left. Nodule in the left upper lobe measures 12 mm x 13 mm, previously subcentimeter in size. On the right, focal nodule seen posteriorly in the right upper lobe. There is nodularity seen along the minor fissure anteriorly. Punctate nodules are seen in the right middle lobe. There is a dominant nodule seen in the right lower lobe, measuring 2.0 cm by 1.2 cm.. This is increased in size compared to prior. There are many new nodules seen on the right. Nodule in the right lower lobe on image number 41 has also increased in size. No acute bony abnormality Abdomen and pelvis: No perisplenic fluid. No intrahepatic ductal dilatation. No perihepatic fluid A few scattered ill-defined hypodense nodules are seen in the liver, largest of which is seen inferiorly in the right hepatic lobe measuring 2.1 x 2.2 cm. These are new compared to prior G-tube is seen. Bulb is seen in the stomach. No perisplenic fluid No peripancreatic inflammatory change. No hydronephrosis on right. There is mild pelvicaliectasis on the left. Left-sided ureteral stent is seen, in its expected location. Large heterogeneous mass is again in the left mid abdomen, marginating staple line in the colon. This mass measures 9. 5 cm x 11.5 cm. This mass encases the left ureter, which contains a stent. Mass also is inseparable from loops of both small and large bowel, the psoas and iliacus muscle on the left. Ostomy site is seen in left lower quadrant.. Anastomotic staple line seen in the pelvis. Spurring is seen in the spine and hips. Sclerotic foci are seen, most notably in L3 vertebral body CT/CT chest w con IMPRESSION: Multiple pulmonary metastasis, increased in size and number compared to prior. No focal pneumonia noted to account for the patient's sepsis. Large mass in the abdomen, inseparable from loops of both small and large bowel, likely recurrent colon carcinoma. The large mass in cases the left ureter which contains a ureteral stent. There is mild pelvicaliectasis on the left Hepatic metastasis and osseous metastatic disease No abdominal or pelvic abscess to explain the patient's sepsis D/ / Monico Perez MD / Monico Perez MD Interpreting Provider: Monico Perez MD - EKG Data EKG #1 EKG attestation: Yes I reviewed and interpreted this EKG. EKG results narrative: EKG interpreted by myself as sinus tachycardia rate 116 a QTC of [address] elevation
[2019-02-04] MEDS ORDERED: 0.9 % Sodium Chloride 1,000 ML IVC ONE (12:08)
[2019-02-04] MEDS ORDERED: Piperacillin/Tazobactam 3.375 GM in 0.9 % Sodium Chloride Mini Bag 100 ML IVPB ONE (12:09)
[2019-02-04] MEDS ORDERED: Vancomycin 1,000 MG in 0.9 % Sodium Chloride 10 ML IVPB ONE (12:09)
[2019-02-04] MEDS ORDERED: *HR* OxyCODONE/APAP 5/325 TABLET PO ONE (12:39)
[2019-02-04] MEDS ORDERED: Isovue-370 500 ML BOTTLE IVP ONE ×2 (12:41→14:18)
[2019-02-04 12:49] LABS: Basophils # 0.1 K/mcL (0.0-0.2); Basophils % 0.4 %; Eosinophils # 0.2 K/mcL (0.0-0.6); Eosinophils % 0.9 %; Hemoglobin 7.9 g/dL (11.5-15.4); Immature Granulocytes % 1.5 % (0-4); Lymphocytes % 9.2 %; Mean Corpuscular HGB Conc 31.6 g/dL (31.6-35.5); Mean Corpuscular Hemoglobin 27.6 pg (28.0-33.3); Mean Corpuscular Volume 87.4 fL (83.0-100.0); Mean Platelet Volume 8.7 fL (9.4-12.4); Monocytes # 1.9 K/mcL (0.0-1.3); Monocytes % 8.8 %; Neutrophils # 17.5 K/mcL (1.6-8.9); Platelet Count 636 K/mcL (140-400); Red Blood Count 2.86 M/mcL (3.82-4.97); Red Cell Distribution Width 16.4 % (11.5-14.5); Segmented Neutrophils % 79.2 %
[2019-02-04 12:56] LABS: Bilirubin,Urine Negative (Negative); Blood,Urine Large (Negative); Clarity,Urine Slightly Cloudy (Clear); Color,Urine Yellow (Yellow); Glucose,Urine (UA) Normal (Normal); Ketones,Urine Negative (Negative); Leukocyte Esterase,Urine Small (Negative); Nitrite,Urine Negative (Negative); Protein,Urine 30 mg/dL (Neg-Trace); Specific Gravity,Urine 1.015 (1.010-1.025); Urobilinogen,Urine Normal (Normal)
[2019-02-04 12:57] LABS: INR 1.2; Prothrombin Time 13.9 Seconds (9.4-12.1)
[2019-02-04 12:59] LABS: Activated Partial Thrombo Time 31.6 Seconds (26.0-36.0)
[2019-02-04 13:08] LABS: Granular Casts,Urine Few per lpf (None Seen); Hyaline Casts,Urine Few per lpf (None-Few); RBC,Urine TNTC per hpf (0-3); Squamous Epithelial Cell,Urine Few per lpf (None-Few)
[2019-02-04 13:08] LABS: Troponin I < 0.03 ng/mL (< 0.04)
[2019-02-04] MEDS ORDERED: Ketorolac 30 MG/ML VIAL IVP ONE (13:08)
[2019-02-04 13:09] LABS: Bacteria,Urine Moderate per hpf (None-Few); Mucus,Urine Few (Few)
[2019-02-04 13:09] LABS: Alanine Aminotransferase 15 Units/L (7-52); Albumin 3.1 g/dL (3.5-5.7); Albumin/Globulin Ratio 0.8 (1.1-2.2); Alkaline Phosphatase 173 Units/L (34-104); Aspartate Amino Transferase 19 Units/L (13-39); BUN/Creatinine Ratio 39 (6-26); Bilirubin,Direct 0.2 mg/dL (0.0-0.2); Bilirubin,Indirect 0.2 mg/dL (0.0-1.2); Bilirubin,Total 0.4 mg/dL (0.3-1.0); Blood Urea Nitrogen 32 mg/dL (8-23); Calcium 8.6 mg/dL (8.6-10.3); Carbon Dioxide 23 mEq/L (23-29); Chloride 99 mEq/L (98-107); Globulin 4.1 g/dL (2.4-3.5); Glucose 146 mg/dL (70-105); Lipase 14 Units/L (11-82); Osmolality,Calculated 290 (280-300); Phosphorous 4.5 mg/dL (2.7-4.5); Sodium 135 mEq/L (136-145); Total Protein 7.2 g/dL (6.4-8.9); eGFR For Non-African Americans > 60 (> 60)
[2019-02-04] MEDS ORDERED: Naloxone 0.4 MG/ML INJ IVP PRN (14:22)
[2019-02-04] MEDS ORDERED: *HR* HYDROcodone/Acet 5/325 mg TABLET PO PRN (14:22)
[2019-02-04] MEDS ORDERED: Ondansetron 4 MG/2 ML VIAL IVP PRN (14:22)
[2019-02-04] MEDS ORDERED: Mag Hydrox/Al Hydrox/Simeth 30 ML UDC PO PRN (14:22)
[2019-02-04] MEDS ORDERED: *HR* FentaNYL (PF) 100 MCG/2 ML VIAL IVP PRN (14:22)
[2019-02-04] MEDS ORDERED: Acetaminophen 325 MG TABLET PO PRN (14:22)
[2019-02-04] MEDS ORDERED: Ketorolac 30 MG/ML VIAL IVP PRN (14:22)
[2019-02-04] MEDS ORDERED: *HR* LORazepam 1 MG TABLET PO PRN (14:28)
[2019-02-04] MEDS ORDERED: 0.9 % Sodium Chloride 1,000 ML IVC SCH (14:30)
[2019-02-04] MEDS ORDERED: Vancomycin (wt based) 1,000 MG VIAL IVPB SCH (15:00)
[2019-02-04] MEDS: 0.9 % Sodium Chloride 1,000 ML IVC SCH ×2 (15:48→17:53)
[2019-02-04] MEDS ORDERED: MORPHINE SUL Oral CONC 10 MG/0.5 ML ORAL.SYG GTUBE PRN (16:56)
--- NOTE | 2019-02-04 17:42 | Internal Med History&Physical ---
Date of Encounter: 02/04/19 Time of Encounter: 17:00 Assessment and Plan (1) Bacteremia due to Klebsiella pneumoniae Current visit: Yes Status: Acute She has been started empirically on Zosyn. Lactobacillus will be added. Await final culture report. (2) Elevated WBC count Current visit: No Status: Acute As above Qualifiers: Leukocytosis type: unspecified Qualified Code(s): D72.829 - Elevated white blood cell count, unspecified (3) Colon cancer Current visit: No Status: Chronic She has decided she will not receive further chemotherapy. I discussed palliative care/hospice concepts with her. She wishes to continue TPN at this time. She will receive IV antibiotics for now and continue to consider her options. Qualifiers: Colon location: unspecified part of colon Qualified Code(s): C18.9 - Malignant neoplasm of colon, unspecified (4) Anemia Current visit: No Status: Acute Hemoglobin has decreased to 7.9. Check iron profile and ferritin in a.m. Qualifiers: Anemia type: unspecified type Qualified Code(s): D64.9 - Anemia, unspecified (5) Azotemia Current visit: No Status: Acute BUN and creatinine are 32 and 0.82 respectively. Continue IV fluids and monitor renal indices. Internal Medicine - H&P: HPI Chief complaint: Bacteremia Admitted From: Emergency Dept Plans for Post Hospital Care: Home History of present illness: Ms. Headley is a 63 year old female who came to emergency room this morning after receiving a call from physicians at [facility] 02/03/2019 stating that blood cultures drawn February 02 returned positive for gram-negative rods. She chose to delay coming to the hospital until this morning. WBC in ER was found to be elevated at 22.1 with slight left shift on differential. Final culture/sensitivity report is pending on Klebsiella pneumoniae documented to be present in 2/2 blood cultures from 02/02/2019. She was given Zosyn in emergency room and admitted to [facility] floor for ongoing care needs. She reports fevers and chills for several months and was told these were likely due to metastatic colon cancer diagnosed in 2009. She had a colostomy placed April 2014 following hemicolectomy. She was hospitalized 12/21/2018 to 019 at [facility] for distal bowel obstruction. A PEG tube was placed for drainage to avoid vomiting from obstruction. She was started on TPN for nutritional needs. She has received multiple chemotherapy regimens and has had multiple pulmonary metastatic lesions treated with various modalities. CT scans of chest and abdomen emergency room today showed increased size and number pulmonary metastases. There are now also documented hepatic metastases and possible bony metastases. There is no other malignancy history. She has anemia and has received numerous blood transfusions.She was hospitalized at [facility] January 09- for IV antibiotics to treat staph epidermidis found and they bloo d culture drawn 12/06/2018. Past Med Surg Social Fam HX - Past Medical History Medical history: cancer, hypertension Additional medical history: colon CA Psychiatric history: no psych history - Past Surgical History Surgical History: appendectomy, cancer surgery, colostomy, hysterectomy, other (PEG tube) Additional surgical history: x7 abd surgeries, colon surgery. PEG Tube - Social History Smoking Status: Never smoker Smokeless Tobacco Status: No Alcohol use: none Drug use: none - Family History Mother Hx Family Cancer: Yes (Colon) Internal Medicine - H&P: Meds LORazepam [Ativan] 0.5 mg PO HS PRN 09/22/18 [History] Oxycodone HCl [Oxaydo] 5 mg PO Q6H PRN 01/09/19 [History] Promethazine [Phenergan] 25 mg PO Q6HR 01/09/19 [History] Allergy/AdvReac Type Severity Reaction Status Date / Time Sulfa (Sulfonamide Allergy Fever Verified 01/09/19 18:28 Antibiotics) All Systems PM: A 10-system review of systems was performed and is negative for pertinent findings except as documented above in the HPI. Review of systems: Review of systems from her December 2018 [facility] hospitalization were reviewed and revised as below Gen.: Her weight has decreased from 73.935 kg December 2014 to weight of 66.224 kg on admission now Cardiovascular: She denies [place] hypertension heart failure angina DVT or pulmonary embolus Respiratory: She is a lifelong nonsmoker and has no known chronic lung disease GI: She has colon cancer as per history of present illness. She denies disorders of her liver gallbladder or exocrine pancreas : She had partial cystectomy as part of treatment for colon cancer. She denies other kidney or bladder disorders. She has had hysterectomy and oophorectomy. Neurologic: She denies large distribution strokes or seizures. Endocrine: She denies diabetes thyroid disease or hyperlipidemia Hematology/oncology: As per history of present illness Psychiatric: She has anxiety but no significant depression or other mental health issues [place] skeletal: She denies arthritis gout or other bone joint or muscle disorders. - Constitutional Vitals: Temp Pulse Resp BP Pulse Ox 98.1 F 88 16 114/70 97 02/04/19 11:50 02/04/19 16:45 02/04/19 16:45 02/04/19 16:45 02/04/19 16:45 Exam: Gen.: She is a well-developed lean female resting in bed who appears in no acute distress HEENT: Head is atraumatic and normocephalic. Eyes: EOMI. There is no scleral icterus. Mouth: Mucosa is moist. Neck: Supple and nontender. There is no thyromegaly or adenopathy noted. Heart: Regular without murmurs gallops or ectopics Lungs: No wheezes or crackles are heard. Abdomen: Soft and nontender. No masses or guarding are noted. There is a colostomy in the left abdominal area. Extremities: There is no cyanosis edema or clubbing noted. Dorsalis pedis and posttibial pulses are 1-2 over 2 bilaterally. Neurologic: Mental status: She is talkative and a good historian. Cranial nerves: Smile is symmetric. Forehead wrinkles bilaterally. Tongue protrudes midline. EOMI. Motor: There is no pronator drift. Cerebellar: Finger to nose is intact bilaterally. Skin: Warm and dry Internal Med - H&P Results - Labs CBC & Chem 7: 02/04/19 12:23 02/04/19 12:23 Labs: Short CBC 02/04/19 Range/Units 12:23 WBC 22.1 H (4.3-11.1) K/mcL Hgb 7.9 L (11.5-15.4) g/dL Hct 25.0 L (35.3-44.9) % Plt Count 636 H (140-400) K/mcL Neutrophils # 17.5 H (1.6-8.9) K/mcL BMP 02/04/19 12:23 Sodium 135 L Potassium 4.0 Chloride 99 Carbon Dioxide 23 BUN 32 H Creatinine 0.82 Glucose 146 H Calcium 8.6 Cardiac Enzymes 02/04/19 Range/Units 12:23 Troponin I < 0.03 (< 0.04) ng/mL Liver Function 02/04/19 Range/Units 12:23 Total Bilirubin 0.4 (0.3-1.0) mg/dL Direct Bilirubin 0.2 (0.0-0.2) mg/dL AST 19 (13-39) Units/L ALT 15 (7-52) Units/L Alkaline Phosphatase 173 H (34-104) Units/L Albumin 3.1 L (3.5-5.7) g/dL Urine 02/04/19 Range/Units 12:30 Urine Color Yellow (Yellow) Urine Clarity Slightly Cloudy A (Clear) Urine pH 7.0 (5.0-8.0) pH Units Ur Specific [place] 1.015 (1.010-1.025) Urine Protein 30 H (Neg-Trace) mg/dL Urine Glucose (UA) Normal (Normal) mg/dL - Impressions ITS Impressions Abdomen/Pelvis CT 02/04/19 12:40 IMPRESSION: Multiple pulmonary metastasis, increased in size and number compared to prior. No focal pneumonia noted to account for the patient's sepsis. Large mass in the abdomen, inseparable from loops of both small and large bowel, likely recurrent colon carcinoma. The large mass in cases the left ureter which contains a ureteral stent. There is mild pelvicaliectasis on the left Hepatic metastasis and osseous metastatic disease No abdominal or pelvic abscess to explain the patient's sepsis D/ / Monico Perez MD / Monico Perez MD Interpreting Provider: Monico Perez MD Chest CT 02/04/19 14:18
[2019-02-04] MEDS: *HR* OxyCODONE Immed Rel 5 MG TABLET PO PRN (18:16)
[2019-02-04] MEDS: Piperacillin/Tazobactam 3.375 GM in 0.9 % Sodium Chloride Mini Bag 100 ML IVPB SCH ×2 (18:22→23:59)
[2019-02-04] MEDS ORDERED: Clinimix E 5%-15% SOLUTION 2,000 ML with MVI, adult with vitamin K 10 ML, Trace Eleme... IV ONE (20:00)
[2019-02-04] MEDS: *HR* LORazepam 2 MG/ML VIAL IVP SCH (21:13)
[2019-02-04] MEDS: Lactobacillus 1 EACH CAP.SPRINK PO SCH (21:13)
[2019-02-04] MEDS: *HR* Promethazine 25 MG/ML VIAL IVP PRN (21:28)
[2019-02-05] MEDS: *HR* OxyCODONE Immed Rel 5 MG TABLET PO PRN ×3 (01:45→17:06)
[2019-02-05] MEDS: *HR* Promethazine 25 MG/ML VIAL IVP PRN ×3 (03:13→20:19)
[2019-02-05 07:20] LABS: BUN/Creatinine Ratio 24 (6-26); Blood Urea Nitrogen 20 mg/dL (8-23); Calcium 7.9 mg/dL (8.6-10.3); Carbon Dioxide 24 mEq/L (23-29); Chloride 105 mEq/L (98-107); Glucose 125 mg/dL (70-105); Osmolality,Calculated 288 (280-300); Sodium 137 mEq/L (136-145); eGFR For Non-African Americans > 60 (> 60)
[2019-02-05 08:20] LABS: Hematocrit 22.5 % (35.3-44.9)
[2019-02-05 08:42] LABS: % Iron Saturation 6 % (15-50); Iron 10 mcg/dL (50-170); Transferrin 119 mg/dL (203-362)
[2019-02-05] MEDS: Lactobacillus 1 EACH CAP.SPRINK PO SCH ×2 (08:58→20:19)
[2019-02-05 09:00] LABS: Ferritin 655 ng/mL (10-120)
[2019-02-05] MEDS: Piperacillin/Tazobactam 3.375 GM in 0.9 % Sodium Chloride Mini Bag 100 ML IVPB SCH (09:00)
[2019-02-05] MEDS ORDERED: D10% in Water 500 ML IVC PRN (11:23)
[2019-02-05] MEDS ORDERED: Iron Dextran Complex 1,000 MG in 0.9 % Sodium Chloride 500 ML IVPB ONE (11:53)
--- NOTE | 2019-02-05 11:59 | Internal Med Progress Note ---
Date of Encounter: 02/05/19 Time of Encounter: 11:45 - Assessment and plan (1) Bacteremia due to Klebsiella pneumoniae Current Visit: Yes Status: Acute Assessment and plan: February 05. Final culture and sensitivity report from 02/02/2019 blood cultures noted. She will be changed from Zosyn to Rocephin. Continue lactobacillus. Blood culture drawn 02/04/2019 shows gram-negative rods also. (2) Elevated WBC count Current Visit: No Status: Acute Assessment and plan: February 05. Continue IV antibiotics as above. Qualifiers: Leukocytosis type: unspecified Qualified Code(s): D72.829 - Elevated white blood cell count, unspecified (3) Colon cancer Current Visit: No Status: Chronic Assessment and plan: February 05. She has declined further chemotherapy however she is not ready to accept hospice at this time but wishes to continue TPN and IV antibiotics. Qualifiers: Colon location: unspecified part of colon Qualified Code(s): C18.9 - Malignant neoplasm of colon, unspecified (4) Anemia Current Visit: No Status: Acute Assessment and plan: February 05. Hemoglobin has decreased to 7.0. Iron profile shows iron 10, transferrin saturation 6%, transferrin 119, and ferritin 655. She will receive 2 units packed red blood cells transfusion and iron dextran infusion. B12 and folate levels were acceptable on 01/10/2019 labs. Qualifiers: Anemia type: unspecified type Qualified Code(s): D64.9 - Anemia, unspecified (5) Azotemia Current Visit: No Status: Acute Assessment and plan: February 05. Resolved. BUN and creatinine now 20 and 0.84 respectively. Continue to monitor labs. - Subjective Interval history: February 05. She has no new complaints. - Constitutional Vitals: Temp Pulse Resp BP Pulse Ox 99.0 F 106 18 107/61 98 02/05/19 08:14 02/05/19 08:14 02/05/19 08:14 02/05/19 08:14 02/05/19 08:14 Exam: She is resting comfortably in bed and appears in no acute distress. Her affect is bright and cheerful. I reviewed her medications and lab results. I discussed her TPN regimen with dietitian at [facility]. Internal Medicine: Result - Labs CBC & Chem 7: 02/05/19 08:10 02/05/19 05:35 Labs: Short CBC 03/17/19 03/18/19 Range/Units 12:23 08:10 WBC 22.1 H (4.3-11.1) K/mcL Hgb 7.9 L 7.0 L (11.5-15.4) g/dL Hct 25.0 L 22.5 L (35.3-44.9) % Plt Count 636 H (140-400) K/mcL Neutrophils # 17.5 H (1.6-8.9) K/mcL BMP 02/04/19 02/05/19 12:23 05:35 Sodium 135 L 137 Potassium 4.0 4.0 Chloride 99 105 Carbon Dioxide 23 24 BUN 32 H 20 Creatinine 0.82 0.84 Glucose 146 H 125 H Calcium 8.6 7.9 L Cardiac Enzymes 02/04/19 Range/Units 12:23 Troponin I < 0.03 (< 0.04) ng/mL Liver Function 02/04/19 Range/Units 12:23 Total Bilirubin 0.4 (0.3-1.0) mg/dL Direct Bilirubin 0.2 (0.0-0.2) mg/dL AST 19 (13-39) Units/L ALT 15 (7-52) Units/L Alkaline Phosphatase 173 H (34-104) Units/L Albumin 3.1 L (3.5-5.7) g/dL Urine 02/04/19 Range/Units 12:30 Urine Color Yellow (Yellow) Urine Clarity Slightly Cloudy A (Clear) Urine pH 7.0 (5.0-8.0) pH Units Ur Specific [place] 1.015 (1.010-1.025) Urine Protein 30 H (Neg-Trace) mg/dL Urine Glucose (UA) Normal (Normal) mg/dL - ABG Interpretation ABG results: PT/INR, D-dimer PT 13.9 Seconds (9.4-12.1) H 02/04/19 12:23 - Impressions Impressions Abdomen/Pelvis CT 02/04/19 12:40 IMPRESSION: Multiple pulmonary metastasis, increased in size and number compared to prior. No focal pneumonia noted to account for the patient's sepsis. Large mass in the abdomen, inseparable from loops of both small and large bowel, likely recurrent colon carcinoma. The large mass in cases the left ureter which contains a ureteral stent. There is mild pelvicaliectasis on the left Hepatic metastasis and osseous metastatic disease No abdominal or pelvic abscess to explain the patient's sepsis D/ / Monico Perez MD / Monico Perez MD Interpreting Provider: Monico Perez MD Chest CT 02/04/19 14:18 IMPRESSION: Multiple pulmonary metastasis, increased in size and number compared to prior. No focal pneumonia noted to account for the patient's sepsis. Large mass in the abdomen, inseparable from loops of both small and large bowel, likely recurrent colon carcinoma. The large mass in cases the left ureter which contains a ureteral stent. There is mild pelvicaliectasis on the left Hepatic metastasis and osseous metastatic disease No abdominal or pelvic abscess to explain the patient's sepsis D/ / Monico Perez MD / Monico Perez MD Interpreting Provider: Monico Perez MD Consult Discharge Plan - Plan Referrals: NONE,PCP [Primary Care Provider] - 1 week
[2019-02-05] MEDS: Acetaminophen 325 MG TABLET PO PRN ×2 (12:49→18:19)
[2019-02-05] MEDS: cefTRIAXone 1,000 MG in Water for inj. (sterile) 20 ML 10 ML IVP SCH (12:50)
[2019-02-05] MEDS ORDERED: IRON DEXTRAN COMPLEX IVPB ONE ×2 (13:30→16:30)
[2019-02-05] MEDS ORDERED: SODIUM CHLORIDE 0.9% IVPB ONE ×2 (13:30→16:30)
[2019-02-05] MEDS ORDERED: 0.9 % Sodium Chloride 1,000 ML ONE (13:51)
[2019-02-05] MEDS ORDERED: 0.9 % Sodium Chloride 250 ML ONE ×2 (13:53→16:33)
[2019-02-05] MEDS ORDERED: Clinimix E 5%-15% SOLUTION 2,000 ML with MVI, adult with vitamin K 10 ML, Trace Eleme... IVC SCH (17:00)
[2019-02-05] MEDS: *HR* LORazepam 2 MG/ML VIAL IVP SCH (20:18)
[2019-02-06] MEDS: Acetaminophen 325 MG TABLET PO PRN ×2 (03:02→20:06)
[2019-02-06 06:55] LABS: Basophils % 0.2 %; Eosinophils % 1.2 %; Hematocrit 27.7 % (35.3-44.9); Hemoglobin 9.1 g/dL (11.5-15.4); Lymphocytes # 1.8 K/mcL (0.6-4.6); Lymphocytes % 8.9 %; Mean Corpuscular HGB Conc 32.9 g/dL (31.6-35.5); Mean Corpuscular Hemoglobin 28.6 pg (28.0-33.3); Mean Corpuscular Volume 87.1 fL (83.0-100.0); Mean Platelet Volume 8.4 fL (9.4-12.4); Neutrophils # 16.6 K/mcL (1.6-8.9); Platelet Count 518 K/mcL (140-400); Red Blood Count 3.18 M/mcL (3.82-4.97); Red Cell Distribution Width 15.6 % (11.5-14.5); Segmented Neutrophils % 80.7 %
[2019-02-06 06:56] LABS: Eosinophils # 0.3 K/mcL (0.0-0.6); Monocytes # 1.7 K/mcL (0.0-1.3)
[2019-02-06 07:32] LABS: BUN/Creatinine Ratio 22 (6-26); Blood Urea Nitrogen 17 mg/dL (8-23); Calcium 8.1 mg/dL (8.6-10.3); Carbon Dioxide 22 mEq/L (23-29); Chloride 102 mEq/L (98-107); Glucose 156 mg/dL (70-105); Osmolality,Calculated 277 (280-300); Phosphorous 3.8 mg/dL (2.7-4.5); Sodium 131 mEq/L (136-145); eGFR For Non-African Americans > 60 (> 60)
[2019-02-06] MEDS: Lactobacillus 1 EACH CAP.SPRINK PO SCH ×2 (07:48→20:06)
--- NOTE | 2019-02-06 10:07 | Internal Med Progress Note ---
Date of Encounter: 02/06/19 Time of Encounter: 09:57 - Assessment and plan (1) Bacteremia due to Klebsiella pneumoniae Current Visit: Yes Status: Acute Assessment and plan: February 05. Final culture and sensitivity report from 02/02/2019 blood cultures noted. She will be changed from Zosyn to Rocephin. Continue lactobacillus. Blood culture drawn 02/04/2019 shows gram-negative rods also. February 06. Blood cultures from 02/04/2019 also showed Klebsiella with identical sensitivity to 02/02/2019 cultures. She will continue on IV Rocephin to complete a total of 2 weeks therapy. Attempt will be made today to obtain approval from [facility] for home infusion of Rocephin with possible discharge date tomorrow. (2) Elevated WBC count Current Visit: No Status: Acute Assessment and plan: February 05. Continue IV antibiotics as above. February 06. Improved to 20.6 today. Continue IV Rocephin through 02/18/2019. Qualifiers: Leukocytosis type: unspecified Qualified Code(s): D72.829 - Elevated white blood cell count, unspecified (3) Colon cancer Current Visit: No Status: Chronic Assessment and plan: February 05. She has declined further chemotherapy however she is not ready to accept hospice at this time but wishes to continue TPN and IV antibiotics. Qualifiers: Colon location: unspecified part of colon Qualified Code(s): C18.9 - Malignant neoplasm of colon, unspecified (4) Anemia Current Visit: No Status: Acute Assessment and plan: February 05. Hemoglobin has decreased to 7.0. Iron profile shows iron 10, trans brianne saturation 6%, transferrin 119, and ferritin 655. She will receive 2 units packed red blood cells transfusion and iron dextran infusion. B12 and folate levels were acceptable on 01/10/2019 labs. February 06. She received 2 units packed red blood cells and iron and dextran IV yesterday and hemoglobin has risen to 9.1. Continue to monitor CBC. Qualifiers: Anemia type: unspecified type Qualified Code(s): D64.9 - Anemia, unspecified (5) Azotemia Current Visit: No Status: Acute Assessment and plan: February 05. Resolved. BUN and creatinine now 20 and 0.84 respectively. Continue to monitor labs. February 06. BUN and creatinine have decreased to 17 and 0.77. Discontinue IV fluids. Anticipate discharge home tomorrow if stable. - Subjective Interval history: February 05. She has no new complaints. February 06. She has no new complaints. She spiked fever 102.2 earlier this morning. - Constitutional Vitals: Temp Pulse Resp BP Pulse Ox 98.9 F 110 16 123/72 98 02/06/19 07:02 02/06/19 07:02 02/06/19 07:02 02/06/19 07:02 02/06/19 07:02 Exam: She is resting comfortably in bed and appears in no acute distress at present time. Her affect is bright and cheerful. Her G-tube site looks clean. I reviewed her medications and lab results. Internal Medicine: Result - Labs CBC & Chem 7: 02/06/19 06:43 02/06/19 06:43 Labs: Short CBC 02/06/19 Range/Units 06:43 WBC 20.6 H (4.3-11.1) K/mcL Hgb 9.1 L D (11.5-15.4) g/dL Hct 27.7 L (35.3-44.9) % Plt Count 518 H (140-400) K/mcL Neutrophils # 16.6 H (1.6-8.9) K/mcL BMP 02/06/19 06:43 Sodium 131 L Potassium 4.0 Chloride 102 Carbon Dioxide 22 L BUN 17 Creatinine 0.77 Glucose 156 H Calcium 8.1 L - ABG Interpretation ABG results: PT/INR, D-dimer PT 13.9 Seconds (9.4-12.1) H 02/04/19 12:23 Consult Discharge Plan - Plan Referrals: NONE,PCP [Primary Care Provider] - 1 week
[2019-02-06] MEDS ORDERED: *HR* OxyCODONE Immed Rel 5 MG TABLET PO ONE (11:03)
[2019-02-06] MEDS: cefTRIAXone 1,000 MG in Water for inj. (sterile) 20 ML 10 ML IVP SCH (13:13)
[2019-02-06] MEDS: *HR* OxyCODONE Immed Rel 5 MG TABLET PO PRN ×2 (15:21→18:43)
[2019-02-06] MEDS ORDERED: Clinimix E 5%-15% SOLUTION 2,000 ML with MVI, adult with vitamin K 10 ML, Trace Eleme... IVC SCH (17:00)
[2019-02-06] MEDS: *HR* LORazepam 2 MG/ML VIAL IVP SCH (20:05)
[2019-02-06] MEDS: *HR* Promethazine 25 MG/ML VIAL IVP PRN (20:06)
[2019-02-06] MEDS ORDERED: Ibuprofen 600 MG TABLET PO ONE (22:23)
[2019-02-07] MEDS: *HR* OxyCODONE Immed Rel 5 MG TABLET PO PRN ×3 (04:40→14:28)
[2019-02-07 05:55] LABS: BUN/Creatinine Ratio 26 (6-26); Blood Urea Nitrogen 20 mg/dL (8-23); Calcium 8.5 mg/dL (8.6-10.3); Carbon Dioxide 23 mEq/L (23-29); Chloride 102 mEq/L (98-107); Glucose 113 mg/dL (70-105); Osmolality,Calculated 281 (280-300); Potassium 4.1 mEq/L (3.5-5.1); Sodium 134 mEq/L (136-145); eGFR For Non-African Americans > 60 (> 60)
[2019-02-07 07:15] VITALS: BP 131/88
[2019-02-07] MEDS: Acetaminophen 325 MG TABLET PO PRN (07:32)
[2019-02-07] MEDS: Lactobacillus 1 EACH CAP.SPRINK PO SCH (07:33)
[2019-02-07] MEDS: cefTRIAXone 1,000 MG in Water for inj. (sterile) 20 ML 10 ML IVP SCH (12:31)
--- NOTE | 2019-02-07 14:56 | Internal Med Progress Note ---
Date of Encounter: 02/07/19 Time of Encounter: 14:20 - Assessment and plan (1) Bacteremia due to Klebsiella pneumoniae Current Visit: Yes Status: Acute Assessment and plan: February 05. Final culture and sensitivity report from 02/02/2019 blood cultures noted. She will be changed from Zosyn to Rocephin. Continue lactobacillus. Blood culture drawn 02/04/2019 shows gram-negative rods also. February 06. Blood cultures from 02/04/2019 also showed Klebsiella with identical sensitivity to 02/02/2019 cultures. She will continue on IV Rocephin to complete a total of 2 weeks therapy. Attempt will be made today to obtain approval from [facility] for home infusion of Rocephin with possible discharge date tomorrow. February 07. [facility] has declined approving resumption of home TPN and co ntinuing IV Rocephin to complete a [minimum] 2 week course due to the patient's fever spikes which they feel possibly may indicate infected port. I spoke with [facility] personnel myself and was told the recommendation from the physician there was negative blood cultures on 3 consecutive days should be documented before [facility] would approve ongoing home TPN/antibiotics. The patient does not want to stay in the hospital for another 5 days or longer. I told her I could transfer her to [facility] where she can be seen by infection disease staff, have TPN managed in-house, have port removal/replacement done if indicated, and arrange for home infusion of TPN and antibiotics. She agreed to this plan. (2) Elevated WBC count Current Visit: No Status: Acute Assessment and plan: February 05. Continue IV antibiotics as above. February 06. Improved to 20.6 today. Continue IV Rocephin through 02/18/2019. February 07. Continue IV Rocephin. Anticipate transfer to [facility] a day for ID consult and possible port removal as per above. Qualifiers: Leukocytosis type: unspecified Qualified Code(s): D72.829 - Elevated white blood cell count, unspecified (3) Colon cancer Current Visit: No Status: Chronic Assessment and plan: February 05. She has declined further chemotherapy however she is not ready to accept hospice at this time but wishes to continue TPN and IV antibiotics. Qualifiers: Colon location: unspecified part of colon Qualified Code(s): C18.9 - Malignant neoplasm of colon, unspecified (4) Anemia Current Visit: No Status: Acute Assessment and plan: February 05. Hemoglobin has decreased to 7.0. Iron profile shows iron 10, transferrin saturation 6%, transferrin 119, and ferritin 655. She will receive 2 units packed red blood cells transfusion and iron dextran infusion. B12 and folate levels were acceptable on 01/10/2019 labs. February 06. She received 2 units packed red blood cells and iron and dextran IV yesterday and hemoglobin has risen to 9.1. Continue to monitor CBC. Qualifiers: Anemia type: unspecified type Qualified Code(s): D64.9 - Anemia, unspecified (5) Azotemia Current Visit: No Status: Acute Assessment and plan: February 05. Resolved. BUN and creatinine now 20 and 0.84 respectively. Continue to monitor labs. February 06. BUN and creatinine have decreased to 17 and 0.77. Discontinue IV fluids. Anticipate discharge home tomorrow if stable. February 07. Creatinine stable at 0.76. - Subjective Interval history: February 05. She has no new complaints. February 06. She has no new complaints. She spiked fever 102.2 earlier this morning. February 07. She has no new complaints. She had fever spike to 103 F last evening. It has since returned to normal range. - Constitutional Vitals: Temp Pulse Resp BP Pulse Ox 98.6 F 114 14 131/88 95 02/07/19 10:30 02/07/19 07:09 02/07/19 07:09 02/07/19 07:09 02/07/19 07:09 Exam: She is resting comfortably in bed and appears in no acute distress. Her affect is bright and cheerful. I reviewed her medications and lab results. Internal Medicine: Result - Labs CBC & Chem 7: 02/06/19 06:43 02/07/19 04:25 Labs: BMP 02/07/19 04:25 Sodium 134 L Potassium 4.1 Chloride 102 Carbon Dioxide 23 BUN 20 Creatinine 0.76 Glucose 113 H Calcium 8.5 L - ABG Interpretation ABG results: PT/INR, D-dimer PT 13.9 Seconds (9.4-12.1) H 02/04/19 12:23 Consult Discharge Plan - Plan Referrals: NONE,PCP [Primary Care Provider] - 1 week
--- NOTE | 2019-02-07 15:17 | Discharge Summary ---
Orders not resulted at time of discharge: Pending orders 02/04/19 12:23 Culture,Blood [BC] Stat 02/08/19 04:00 Basic Metabolic Panel AM 0400 Complete Blood Count [HEME] AM 0400 Date of Encounter: 02/07/19 Time of Encounter: 14:20 - Discharge Diagnosis (1) Bacteremia due to Klebsiella pneumoniae Priority: Primary Status: Acute (2) Elevated WBC count Priority: Secondary Status: Acute Qualifiers: Leukocytosis type: unspecified Qualified Code(s): D72.829 - Elevated white blood cell count, unspecified (3) Colon cancer Priority: Secondary Status: Chronic Qualifiers: Colon location: unspecified part of colon Qualified Code(s): C18.9 - Malignant neoplasm of colon, unspecified (4) Anemia Priority: Secondary Status: Acute Qualifiers: Anemia type: unspecified type Qualified Code(s): D64.9 - Anemia, unspecified (5) Azotemia Priority: Secondary Status: Resolved Hospital course: Ms. Headley is a 63 year old female who came to emergency room this morning after receiving a call from physicians at [facility] 02/03/2019 stating that blood cultures drawn February 02 returned positive for gram-negative rods. She chose to delay coming to the hospital until this morning. WBC in ER was found to be elevated at 22.1 with slight left shift on differential. Final culture/sensitivity report is pending on Klebsiella pneumoniae documented to be present in 2/2 blood cultures from 02/02/2019. She was given Zosyn in emergency room and admitted to [facility] floor for ongoing care needs. Initial orders were written by the emergency room physician. I saw her on February 04 and performed the history and physical. She was started empirically on IV Zosyn with lactobacillus. Blood culture report came back showing Klebsiella pneumoniae with sensitivity to Rocephin. Repeat blood culture 02/04/2019 also showed Klebsiella with identical sensitivity to culture results of 02/02/2019. She spiked fever up to 103 F the evening of February 06. [facility] staff did not feel she should be discharged home on ongoing TPN and antibiotics suspicious there was possible port sepsis. I spoke with patient and and it was felt she should be transferred to [facility] for evaluation by ID. She was accepted in transfer the afternoon of February 07. She received 2 units packed red blood cells and iron dextran infusion for anemia on February 05. - Time Spent with Patient Total time spent providing and/or coordinating discharge services: - Discharge Medications Prescriptions: No Action LORazepam [Ativan] 0.5 mg PO HS PRN PRN Reason: Anxiety Promethazine [Phenergan] 25 mg PO Q6HR Oxycodone HCl [Oxaydo] 5 mg PO Q6H PRN PRN Reason: Pain Home Medications: LORazepam [Ativan] 0.5 mg PO HS PRN 09/22/18 [History] Oxycodone HCl [Oxaydo] 5 mg PO Q6H PRN 01/09/19 [History] Promethazine [Phenergan] 25 mg PO Q6HR 01/09/19 [History] Allergies/Adverse Reactions: Allergy/AdvReac Type Severity Reaction Status Date / Time Sulfa (Sulfonamide Allergy Fever Verified 01/09/19 18:28 Antibiotics) Date of admission: 02/04/19 17:48 Primary care physician: Brian Riggs M.D. Consults: 02/05/19 09:32 consult to air quality instrument specialist [Consult to Nutrition] [CONS] Stat Comment: Consulting Provider: NUTRITION Reason for Dietary Consult: TPN Start and Manage - Constitutional Vitals: Temp Pulse Resp BP Pulse Ox 98.6 F 114 14 131/88 95 02/07/19 10:30 02/07/19 07:09 02/07/19 07:09 02/07/19 07:09 02/07/19 07:09 - Patient Status Disposition: Transfer Other Condition: Fair - Discharge Instructions
[2019-02-07] MEDS ORDERED: Clinimix E 5%-15% SOLUTION 2,000 ML with MVI, adult with vitamin K 10 ML, Trace Eleme... IVC SCH (17:00)
--- NOTE | 2019-02-09 07:54 | Electrocardiograph Report ---
[address] [address] Test Date: 2019-02-04 Pat Name: Esperanza eHadley Department: [id number] Room: [facility] Gender: F [employer] Supervisor: [id number] : 1955 Requested By: Yennifer Spence Order Number: [id number] Reading MD: Hilario Resendiz Measurements Intervals [place] Rate: 115 P: 45 [place]: 137 QRS: 43 QRSD: 86 T: 43 QT: 301 QTc: 369 Interpretive Statements SINUS TACHYCARDIA Electronically Signed On 02-09-2019 7:52:34 EDT by Hilario Resendiz
== END 2019-02-07 16:45 | disposition other institution (70) | DRG 315 ==
LOC: INPPIK 11:46 → EMEROOPIK 11:46 → INPPIK 16:57
PROVIDERS: ADMIT Internal Medicine; ATTEND Internal Medicine